=== PATIENT | male | born 1980 | race Caucasian/White ===

== ENCOUNTER 2018-10-19 14:04 | Inpatient (IN) | payer OTHER ==
[2018-10-19 18:38] VITALS: BMI 39.9
--- NOTE | 2018-10-19 20:42 | HP ---
COWS - Scale Resting Pulse: 2= UT 101-120 Sweatin=Flushed/Facial Moisture Restless Observation: 5= Unable to Sit Still Pupil Size: 1= Pupils >than Normal Bone or Joint Aches: 4=Acute Joint/Muscle Pain Runny Nose/ Eye Tearin= Runny Nose/Eyes GI Upset > 30mins: 3= Vomiting/Diarrhea Tremor Observation: 0= None Yawning Observation: 0= None Anxiety or Irritability: 2=Irritable/Anxious Goose Flesh Skin: 0=Smooth Skin COWS Score: 21 CIWA Score Nausea/Vomitin Muscle Tremors: None Anxiety: 4-Mod. Anxious/Guarded Agitation: 4-Moderately Restless Paroxysmal Sweats: 3 Orientation: 0-Oriented Tacttile Disturbances: 0-None Auditory Disturbances: 2-Mild Harshness/Frighten Visual Disturbances: 2-Mild Sensitivity Headache: 0-None Present CIWA-Ar Total Score: 17 - Admission Criteria [facility] Guidelines: Admission for Medically Managed Detox: Requires at least one of the followin. CIWA greater than 12 2. Seizures within the past 24 hours 3. Delirium tremens within the past 24 hours 4. Hallucinations within the past 24 hours 5. Acute intervention needed for co occurring medical disorder 6. Acute intervention needed for co occurring psychiatric disorder 7. Severe withdrawal that cannot be handled at a lower level of care (continued vomiting, continued diarrhea, abnormal vital signs) requiring intravenous medication and/or fluids 8. Patient presents the following: CIWA greater than 12, Acute intervention needed for co-occurring med or psych disorder Admission Criteria Met: Admission criteria met Admission ROS [facility] Chief Complaint: C/O WORSENING WITHDRAWAL SX'S SEEKING DETOX FROM HEROIN AND BENZO Allergies/Adverse Reactions: Allergies Allergy/AdvReac Type Severity Reaction Status Date / Time No Known Drug Allergies Allergy Verified 10/19/18 19:45 seafood Allergy Mild Rash Uncoded 10/19/18 19:45 History of Present Illness: 38 Y.O. MALE WITH HX/O OPIOID AND BENZO DEPENDENCE HERE FOR DETOX. HE IS SELF REFERRED.CLIENT IS KNOWN TO THIS PROGRAM. LAST HERE 2013. DENIES ANY TXMENT SINCE. PRESENT TODAY WITH C/O WORSENING WITHDRAWAL SX'S. CIWA 17/ COS 21. REPORTS LONGEST CLEAN TIME 3MONTHS. DENIES RECENT CLEAN TIME. DENIES HX/O SEIZURE, AVH, SI/HI. LIVES WITH FAMILY, UNEMPLOYED, OPEN LEGAL CASE BUT STATES HE IS NOT COURT MANDATED. PMHX- CHRONIC BACK PAIN, ASTHMA PSYCH- DEPRESSION, ANXIETY, MEDS- PROZAC, NORVASC, XANAX Exam Limitations: No Limitations - Ebola screening Have you traveled outside of the country in the last 21 days: No Have you had contact with anyone from an Ebola affected area: No Have you been sick,other than usual withdrawal symptoms: No Do you have a fever: No - Review of Systems Constitutional: Chills, Loss of Appetite, Malaise, Night Sweats, Changes in sleep EENT: reports: Other (RUNNY NOSE) Respiratory: reports: Shortness of Breath (INTERMITTENT) Cardiac: reports: No Symptoms Reported GI: reports: Diarrhea, Nausea, Poor Appetite, Poor Fluid Intake, Vomiting, Abdominal cramping : reports: Other (DIFFICULTY INITIATING STREAM) Musculoskeletal: reports: Back Pain (CHRONIC) Integumentary: reports: Flushing, Sweating Neuro: reports: No Symptoms reported Endocrine: reports: No Symptoms Reported Hematology: reports: No Symptoms Reported Psychiatric: reports: Anxious, Depressed Other Systems: Reviewed and Negative Patient History - Patient Medical History Hx Anemia: No Hx Asthma: Yes Hx Chronic Obstructive Pulmonary Disease (COPD): No Hx Cancer: No Hx Cardiac Disorders: No Hx Congestive Heart Failure: No Hx Hypertension: Yes Hx Hypercholesterolemia: No Hx Pacemaker: No HX Cerebrovascular Accident: No Hx Seizures: Yes (alcohol related./ LAST EPISODE 2013) Hx Dementia: No Hx Diabetes: No Hx Gastrointestinal Disorders: No Hx Genitourinary Disorders: No Hx Sexually Transmitted Disorders: No Hx Renal Disease (ESRD): No Hx Thyroid Disease: No Hx Human Immunodeficiency Virus (HIV): No Hx Hepatitis C: No Hx Depression: Yes Hx Suicide Attempt: No Hx Bipolar Disorder: Yes Hx Schizophrenia: No - Patient Surgical History Past Surgical History: Yes Hx Neurologic Surgery: No Hx Cataract Extraction: No Hx Cardiac Surgery: No Hx Lung Surgery: No Hx Breast Surgery: No Hx Breast Biopsy: No Hx Abdominal Surgery: No Hx Appendectomy: No Hx Cholecystectomy: No Hx Genitourinary Surgery: No Hx Section: No Hx Orthopedic Surgery: Yes (left gangliaon cyst removed 1993) Other Surgical History: ganglion cyst, left wrist Anesthesia Reaction: No - PPD History Previous Implant?: Yes Documented Results: Negative w/proof Implanted On Prior [facility] Admission?: Yes Date: 04/29/14 Results: 0 mm PPD to be Administered?: Yes - Smoking Cessation Smoking history: Current some day smoker Have you smoked in the past 12 months: Yes Aproximately how many cigarettes per day: 5 Cigars Per Day: 0 Hx Chewing Tobacco Use: No Initiated information on smoking cessation: Yes 'Breaking Loose' booklet given: 10/19/18 - Substance & Tx. History Hx Alcohol Use: No Hx Substance Use: Yes Substance Use Type: Heroin, Tranquilizers (XANAX) Hx Substance Use Treatment: Yes ([facility]) - Substances Abused Heroin Route: Inhalation Frequency: Daily Amount used: 10 BAGS Age of first use: 37 Date of Last Use: 10/19/18 Alprazolam (Xanax) Route: Oral Frequency: Daily Amount used: 2mg Age of first use: 36 Date of Last Use: 10/19/18 Family Disease History - Family Disease History Family Disease History: Diabetes: Grandparent, Heart Disease: Grandparent, Other : Father (alcoholic, ) Admission Physical Exam [facility] - Vital Signs Vital Signs: Vital Signs - 24 hr 10/19/18 18:32 Temperature 98.6 F Pulse Rate 120 H Respiratory 20 Rate Blood Pressure 128/86 - Physical General Appearance: Yes: Appropriately Dressed, Tremorous (FELT), Sweating, Anxious HEENTM: Yes: EOMI, Normocephalic, Normal Voice, JENNY, Pharynx Normal, Nasal Congestion Respiratory: Yes: Chest Non-Tender, Lungs Clear, Normal Breath Sounds, No Respiratory Distress, No Accessory Muscle Use Neck: Yes: No masses,lesions,Nodules, Supple, Trachea in good position Breast: Yes: Breast Exam Deferred Cardiology: Yes: Regular Rhythm, Regular Rate, S1, S2 Abdominal: Yes: Normal Bowel Sounds, Non Tender, Soft, Protuberent Genitourinary: Yes: Other (NO C/O) Back: Yes: Surgical Scar Musculoskeletal: Yes: full range of Motion, Gait Steady Extremities: Yes: Normal Range of Motion, Non-Tender, Tremors (FELT) Neurological: Yes: Fully Oriented, Alert, Motor Strength 5/5, Depressed Affect Integumentary: Yes: Cold (COOL), Clammy, Moist, Other (GENERALIZED HYPERPIGMENTATED LESIONS NOTED TO THIGHS AND ARMS FROM CLIENT PICKING HIS SKIN. REPORTS INTERMITTENT USE OF COCIAINE WELL) Lymphatic: Yes: Within Normal Limits - Diagnostic (1) Opioid dependence with withdrawal Current Visit: Yes Status: Acute (2) Sedative, hypnotic or anxiolytic abuse, uncomplicated Current Visit: Yes Status: Acute (3) Asthma Current Visit: Yes Status: Chronic Qualifiers: Asthma severity: mild Asthma persistence: intermittent Asthma complication type: uncomplicated Qualified Code(s): J45.20 - Mild intermittent asthma, uncomplicated (4) Alcohol related seizure Current Visit: Yes Status: Suspected Comment: HISTORY OF (5) Formication Current Visit: Yes Status: Acute (6) Anxiety Current Visit: Yes Status: Chronic (7) Bipolar disorder Current Visit: Yes Status: Chronic (8) Chronic low back pain Current Visit: Yes Status: Chronic (9) Hypertension Current Visit: Yes Status: Chronic Qualifiers: Hypertension type: essential hypertension Qualified Code(s): I10 - Essential (primary) hypertension Cleared for Admission [facility] - Detox or Rehab [facility] Level of Care: Medically Managed Detox Regimen/Protocol: Methadone/Valium Claeared for Rehab Admission: No [facility] Breath Alcohol Content Breath Alcohol Content: 0 Urine Drug Screen - Results Drug Screen Negative: No Urine Drug Screen Results: OPI-Opiates, BZO-Benzodiazepines, OXY-Oxycodone, FEN- Fentanyl
[2018-10-19] MEDS ORDERED: MAGNESIUM CITRATE 300 ML BOTTLE PO PRN (20:54)
[2018-10-19] MEDS ORDERED: METHADONE HCL 10 MG TABLET (FOR DETOX USE ONLY) PO ONE ×2 (20:54→23:00)
[2018-10-19] MEDS ORDERED: diazePAM 5 MG TABLET PO ONE (20:54)
[2018-10-19] MEDS ORDERED: IBUPROFEN 400 MG TABLET (FP) PO PRN (20:54)
[2018-10-19] MEDS ORDERED: NICOTINE POLACRILEX 2 MG GUM BC PRN (20:54)
[2018-10-19] MEDS ORDERED: MAGNESIUM HYDROX 2400MG/30ML ORAL SUSPENSION 30 ML CUP PO PRN (20:54)
[2018-10-19] MEDS ORDERED: guaiFENesin/D-METHORPHAN HB 10 ML UNIT-DOSE CUPS PO PRN (20:54)
[2018-10-19] MEDS ORDERED: P-EPHED 60MG/TRIPROLIDI 2.5MG TABLET PO PRN (20:54)
[2018-10-19] MEDS ORDERED: LOPERAMIDE HCL 2 MG CAPSULE PO PRN (20:54)
[2018-10-19] MEDS ORDERED: MAG HYDROX/AL HYDROX/SIMETH 30 ML UNIT-DOSE CUP PO PRN (20:54)
[2018-10-19] MEDS ORDERED: MENTHOL/PHENOL 1 EACH UD MM PRN (20:54)
[2018-10-19] MEDS: THIAMINE HCL 100 MG TABLET (FP) PO SCH (23:00)
[2018-10-19] MEDS: diazePAM 5 MG TABLET PO SCH (23:01)
[2018-10-19] MEDS: ACETAMINOPHEN 325 MG TABLET (FP) PO PRN (23:02)
[2018-10-19] MEDS: ALBUTEROL SO4 8 GM HFA INHALER IH PRN (23:16)
[2018-10-19] MEDS: MELATONIN 5 MG TABLETS PO PRN (23:35)
[2018-10-20] MEDS: diazePAM 5 MG TABLET PO PRN ×2 (01:56→20:09)
[2018-10-20] MEDS: diazePAM 5 MG TABLET PO SCH ×3 (05:59→22:04)
[2018-10-20] MEDS: ALBUTEROL SO4 8 GM HFA INHALER IH PRN ×2 (08:29→22:20)
[2018-10-20] MEDS ORDERED: METHADONE HCL 10 MG TABLET (FOR DETOX USE ONLY) PO SCH (10:00)
--- NOTE | 2018-10-20 10:06 | EKG ---
Test Reason : Blood Pressure : / mmHG Vent. Rate : 108 BPM Atrial Rate : 108 BPM P-R Int : 156 ms QRS Dur : 104 ms QT Int : 338 ms P-R-T Axes : 058 213 070 degrees QTc Int : 452 ms SINUS TACHYCARDIA INDETERMINATE AXIS RIGHT VENTRICULAR HYPERTROPHY ABNORMAL ECG NO PREVIOUS ECGS AVAILABLE Confirmed by Ravindra Hernandez MD ([id number]) on 10/20/2018 10:06:11 AM Referred By: Confirmed By:Ravindra Hernandez MD
[2018-10-20] MEDS: NICOTINE 14 MG/24 HOURS TOPICAL PATCH TD SCH (10:14)
[2018-10-20] MEDS: PRENATAL VITAMINS W/ FOLIC ACID TABLET (FP) PO SCH (10:14)
--- NOTE | 2018-10-20 10:18 | CONSULT ---
[facility] Psychiatric Consult - Data Date of interview: 10/20/18 Admission source: [facility] Identifying data: Patient is a 38 year old single male, father of two, unemployed, homeless, and residing with family. This is one of multiple admissions for patient. Patient admitted to for for opiate dependence. Substance Abuse History: Smoking Cessation. Smoking history: Current some day smoker. Have you smoked in the past 12 months: Yes. Aproximately how many cigarettes per day: 5. Cigars Per Day: 0. Hx Chewing Tobacco Use: No. Initiated information on smoking cessation: Yes. 'Breaking Loose' booklet given : 10/19/18. - Substance & Tx. History. Hx Alcohol Use: No. Hx Substance Use: Yes. Substance Use Type: Heroin, Tranquilizers (XANAX). Hx Substance Use Treatment: Yes ([facility]). - Substances Abused. Heroin. Route: Inhalation. Frequency: Daily. Amount used: 10 BAGS. Age of first use: 37. Date of Last Use: 10/19/18. Alprazolam (Xanax). Route: Oral. Frequency: Daily. Amount used: 2mg. Age of first use: 36. Date of Last Use: 10/19/18 Medical History: Asthma, seizures r/t alcohol withdrawal 2013 Psychiatric History: Patient denies h/o psychiatric hospitalization. Mr. Kumar is currently provided outpatient psychatric care in [place], [place] by Dr. frye. Patient is currently prescribed prozac 60mg. Mr. Kumar denies h/o suicide attempt. At present, patient is c/o difficulty sleeping. Physical/Sexual Abuse/Trauma History: denies. Mental Status Exam - Mental Status Exam Alert and Oriented to: Time, Place, Person Cognitive Function: Good Patient Appearance: Well Groomed Mood: Euthymic Affect: Appropriate Patient Behavior: Cooperative Speech Pattern: Clear Voice Loudness: Normal Thought Process: Intact, Goal Oriented Thought Disorder: Not Present Hallucinations: Denies Suicidal Ideation: Denies Homicidal Ideation: Denies Insight/Judgement: Poor Sleep: Poorly Appetite: Fair Muscle strength/Tone: Normal Gait/Station: Normal Psychiatric Findings - Problem List ([place] 1, 2,3) (1) Opioid dependence with withdrawal Current Visit: Yes Status: Acute (2) Sedative, hypnotic or anxiolytic abuse, uncomplicated Current Visit: Yes Status: Acute (3) Substance-induced anxiety disorder Current Visit: Yes Status: Acute (4) Substance-induced sleep disorder Current Visit: Yes Status: Acute - Initial Treatment Plan Initial Treatment Plan: Psychoeducation provided. Detoxification in progress. Will order Prozac 60mg + Seroquel 50mg HS. Benefits and side effects discussed. Verbal consent given.
[2018-10-20 10:26] LABS: HEMATOCRIT 44.5 % (35.4-49); HEMOGLOBIN 14.1 GM/dL (11.7-16.9); MCH 26.9 pg (25.7-33.7); MCHC 31.6 g/dl (32.0-35.9); MEAN PLT VOLUME 9.2 fl (7.5-11.1); PLATELET COUNT 298 K/MM3 (134-434); RBC 5.23 M/mm3 (4.00-5.60); RDW 15.1 % (11.9-15.9); WHITE BLOOD COUNT 11.5 K/mm3 (4.0-10.0)
[2018-10-20] MEDS: amLODIPine BESYLATE 2.5 MG TABLET (FP) PO SCH (10:38)
[2018-10-20] MEDS: TRIMETHOBENZAMIDE HCL 200MG/2ML INJ IM PRN (10:45)
[2018-10-20 10:54] LABS: ALBUMIN 3.9 g/dl (3.4-5.0); ALK PHOS 79 U/L (45-117); ANION GAP 11 MMOL/L (8-16); BILIRUBIN,TOTAL 0.5 mg/dL (0.2-1); BLOOD UREA NITROGEN 13 mg/dL (7-18); CALCIUM 9.8 mg/dL (8.5-10.1); CHLORIDE 103 mmol/L (98-107); CO2 26 mmol/L (21-32); CREATININE 0.8 mg/dL (0.55-1.3); GLUCOSE,RANDOM 73 mg/dL (74-106); POTASSIUM 4.4 mmol/L (3.5-5.1); SGOT/AST 11 U/L (15-37); SGPT/ALT 19 U/L (13-61); SODIUM 139 mmol/L (136-145); TOT PROT 7.6 g/dl (6.4-8.2)
[2018-10-20] MEDS ORDERED: CYCLOBENZAPRINE HCL 10 MG TABLET (FP) PO PRN (11:30)
[2018-10-20] MEDS: FLUoxetine HCL 20 MG CAPSULE (FP) PO SCH (11:33)
--- NOTE | 2018-10-20 16:05 | PN ---
S CIWA - CIWA Score Nausea/Vomitin Muscle Tremors: 3 Anxiety: 5 Agitation: 4-Moderately Restless Paroxysmal Sweats: 3 Orientation: 0-Oriented Tacttile Disturbances: 0-None Auditory Disturbances: 0-None Visual Disturbances: 0-None Headache: 1-Very Mild CIWA-Ar Total Score: 19 BHS COWS - Scale Resting Pulse: 2= ID 101-120 Sweatin= Chills/Flushing Restless Observation: 1= Difficult to Sit Still Pupil Size: 0= Normal to Room Light Bone or Joint Aches: 2= Severe Diffuse Aches Runny Nose/ Eye Tearin= Nasal Congestion GI Upset > 30mins: 2= Nausea/Diarrhea Tremor Observation of Outstretched Hands: 2= Slight Tremor Visible Yawning Observation: 1= 1-2x During Session Anxiety or Irritability: 4=Extreme Anxiety Goose Flesh Skin: 0=Smooth Skin COWS Score: 16 BHS Progress Note (SOAP) Subjective: Nausea, Body Aches, H/A, Sweating, Tremors. Objective: PATIENT A & O X 3, OBSERVED AMBULATING ON UNIT. IN NO ACUTE DISTRESS. 10/20/18 16:04 Vital Signs Temperature 98.2 F 10/20/18 15:33 Pulse Rate 107 H 10/20/18 15:33 Respiratory Rate 18 10/20/18 15:33 Blood Pressure 128/86 10/20/18 15:33 O2 Sat by Pulse Oximetry (%) Laboratory Tests 10/20/18 10/20/18 10/20/18 07:00 07:00 07:00 WBC 11.5 H RBC 5.23 Hgb 14.1 Hct 44.5 MCV 85.0 MCH 26.9 MCHC 31.6 L RDW 15.1 Plt Count 298 D MPV 9.2 Sodium 139 Potassium 4.4 Chloride 103 Carbon Dioxide 26 Anion Gap 11 BUN 13 Creatinine 0.8 Creat Clearance w eGFR > 60 Random Glucose 73 L Calcium 9.8 Total Bilirubin 0.5 AST 11 L ALT 19 Alkaline Phosphatase 79 Total Protein 7.6 Albumin 3.9 RPR Titer HIV 1&2 Antibody Screen Negative HIV P24 Antigen Negative 10/20/18 07:00 WBC RBC Hgb Hct MCV MCH MCHC RDW Plt Count MPV Sodium Potassium Chloride Carbon Dioxide Anion Gap BUN Creatinine Creat Clearance w eGFR Random Glucose Calcium Total Bilirubin AST ALT Alkaline Phosphatase Total Protein Albumin RPR Titer Nonreactive HIV 1&2 Antibody Screen HIV P24 Antigen LABS NOTED. Assessment: 10/20/18 16:04 WITHDRAWAL SYMPTOMS. LEUKOCYTOSIS. 10/20/18 16:07 Plan: CONTINUE DETOX. REPEAT CBC TOMORROW FOR ELEVATED ADMISSION WBC LEVEL.
[2018-10-20] MEDS: QUEtiapine FUMARATE 50 MG TABLET PO SCH (22:04)
[2018-10-20] MEDS: THIAMINE HCL 100 MG TABLET (FP) PO SCH (22:04)
[2018-10-21] MEDS: TRIMETHOBENZAMIDE HCL 200MG/2ML INJ IM PRN (05:42)
[2018-10-21] MEDS ORDERED: METHADONE HCL 5 MG TABLET (FOR DETOX USE ONLY) PO SCH (10:00)
[2018-10-21] MEDS ORDERED: TRIMETHOBENZAMIDE HCL 300 MG CAPSULE PO PRN (10:07)
[2018-10-21] MEDS ORDERED: METHADONE DETOX 10 MG/1 ML [20ML VIAL] IM ONE (10:20)
[2018-10-21] MEDS ORDERED: BACLOFEN 10 MG TABLET (FP) PO ONE (10:25)
[2018-10-21 10:29] LABS: BASO % 0.8 % (0-2.0); EOS % 6.3 % (0-4.5); HEMATOCRIT 45.6 % (35.4-49); HEMOGLOBIN 14.6 GM/dL (11.7-16.9); LYMPH % 35.8 % (8-40); MCH 27.1 pg (25.7-33.7); MEAN CELL VOLUME 84.7 fl (80-96); MEAN PLT VOLUME 9.4 fl (7.5-11.1); MONO % 7.4 % (3.8-10.2); NEUT % 49.7 % (42.8-82.8); PLATELET COUNT 290 K/MM3 (134-434); RBC 5.38 M/mm3 (4.00-5.60); RDW 15.7 % (11.9-15.9)
[2018-10-21] MEDS: NICOTINE 14 MG/24 HOURS TOPICAL PATCH TD SCH (10:57)
[2018-10-21] MEDS: FLUoxetine HCL 20 MG CAPSULE (FP) PO SCH (10:58)
[2018-10-21] MEDS: PRENATAL VITAMINS W/ FOLIC ACID TABLET (FP) PO SCH (10:58)
[2018-10-21] MEDS: diazePAM 5 MG TABLET PO SCH ×2 (10:58→22:04)
--- NOTE | 2018-10-21 12:06 | PN ---
S CIWA - CIWA Score Nausea/Vomitin-No Nausea/No Vomiting Muscle Tremors: 4-Moderate,w/Arms Extend Anxiety: 3 Agitation: 3 Paroxysmal Sweats: 3 Orientation: 0-Oriented Tacttile Disturbances: 0-None Auditory Disturbances: 0-None Visual Disturbances: 0-None Headache: 0-None Present CIWA-Ar Total Score: 13 BHS COWS - Scale Resting Pulse: 0= [place] 80 or Below Sweatin=Flushed/Facial Moisture Restless Observation: 1= Difficult to Sit Still Pupil Size: 0= Normal to Room Light Bone or Joint Aches: 2= Severe Diffuse Aches Runny Nose/ Eye Tearin= None GI Upset > 30mins: 1= Stomach Cramp Tremor Observation of Outstretched Hands: 2= Slight Tremor Visible Yawning Observation: 2= >3x During Session Anxiety or Irritability: 2=Irritable/Anxious Goose Flesh Skin: 0=Smooth Skin COWS Score: 12 S Progress Note (SOAP) Subjective: agitation anxiety sweats shakes interrupted sleep nausea/vomiting chills Objective: 10/21/18 12:02 Vital Signs Temperature 98.2 F 10/21/18 09:33 Pulse Rate 77 10/21/18 09:33 Respiratory Rate 16 10/21/18 09:33 Blood Pressure 141/67 10/21/18 09:33 O2 Sat by Pulse Oximetry (%) Laboratory Tests 10/20/18 10/20/18 10/20/18 07:00 07:00 07:00 WBC 11.5 H RBC 5.23 Hgb 14.1 Hct 44.5 MCV 85.0 MCH 26.9 MCHC 31.6 L RDW 15.1 Plt Count 298 D MPV 9.2 Absolute Neuts (auto) Neutrophils % Lymphocytes % Monocytes % Eosinophils % Basophils % Nucleated RBC % Sodium 139 Potassium 4.4 Chloride 103 Carbon Dioxide 26 Anion Gap 11 BUN 13 Creatinine 0.8 Creat Clearance w eGFR > 60 Random Glucose 73 L Calcium 9.8 Total Bilirubin 0.5 AST 11 L ALT 19 Alkaline Phosphatase 79 Total Protein 7.6 Albumin 3.9 RPR Titer HIV 1&2 Antibody Screen Negative HIV P24 Antigen Negative 10/20/18 10/21/18 07:00 07:00 WBC 9.0 RBC 5.38 Hgb 14.6 Hct 45.6 MCV 84.7 MCH 27.1 MCHC 32.0 RDW 15.7 Plt Count 290 MPV 9.4 Absolute Neuts (auto) 4.5 Neutrophils % 49.7 Lymphocytes % 35.8 Monocytes % 7.4 D Eosinophils % 6.3 H D Basophils % 0.8 Nucleated RBC % 0 Sodium Potassium Chloride Carbon Dioxide Anion Gap BUN Creatinine Creat Clearance w eGFR Random Glucose Calcium Total Bilirubin AST ALT Alkaline Phosphatase Total Protein Albumin RPR Titer Nonreactive HIV 1&2 Antibody Screen HIV P24 Antigen aaox3 ambulating no acute distress Assessment: 10/21/18 12:06 withdrawal sx Plan: continue detox increase fluids methadone 7.5mg IM x one for today only tigan IM prn tigan po prn clonidine 0.1mg bid with parameters
[2018-10-21] MEDS: BACLOFEN 10 MG TABLET (FP) PO SCH ×2 (13:58→22:04)
[2018-10-21] MEDS: diazePAM 5 MG TABLET PO PRN ×2 (13:58→18:58)
[2018-10-21] MEDS: amLODIPine BESYLATE 2.5 MG TABLET (FP) PO SCH (14:00)
[2018-10-21] MEDS: cloNIDine HCL 0.1 MG TABLET PO SCH ×2 (14:57→22:04)
[2018-10-21] MEDS: QUEtiapine FUMARATE 50 MG TABLET PO SCH (22:04)
[2018-10-21] MEDS: THIAMINE HCL 100 MG TABLET (FP) PO SCH (22:04)
[2018-10-21] MEDS: ALBUTEROL SO4 8 GM HFA INHALER IH PRN (22:06)
[2018-10-22] MEDS: BACLOFEN 10 MG TABLET (FP) PO SCH ×3 (06:28→22:29)
[2018-10-22] MEDS: diazePAM 5 MG TABLET PO PRN ×3 (06:30→17:53)
[2018-10-22] MEDS ORDERED: METHADONE HCL 5 MG TABLET (FOR DETOX USE ONLY) PO SCH (10:00)
[2018-10-22] MEDS: cloNIDine HCL 0.1 MG TABLET PO SCH ×2 (10:21→22:26)
[2018-10-22] MEDS: FLUoxetine HCL 20 MG CAPSULE (FP) PO SCH (10:21)
[2018-10-22] MEDS: PRENATAL VITAMINS W/ FOLIC ACID TABLET (FP) PO SCH (10:21)
[2018-10-22] MEDS: diazePAM 5 MG TABLET PO SCH ×2 (10:21→22:26)
[2018-10-22] MEDS: amLODIPine BESYLATE 2.5 MG TABLET (FP) PO SCH (10:22)
[2018-10-22] MEDS: NICOTINE 14 MG/24 HOURS TOPICAL PATCH TD SCH (10:22)
[2018-10-22] MEDS: ALBUTEROL SO4 8 GM HFA INHALER IH PRN ×2 (10:22→22:32)
--- NOTE | 2018-10-22 10:51 | PN ---
BHS Progress Note (SOAP) Subjective: feeling a little better nausea sweats Objective: 10/22/18 10:50 Vital Signs Temperature 97.9 F 10/22/18 09:39 Pulse Rate 103 H 10/22/18 09:39 Respiratory Rate 18 10/22/18 09:39 Blood Pressure 124/72 10/22/18 09:39 O2 Sat by Pulse Oximetry (%) aaox3 ambulating no acute distress Assessment: 10/22/18 10:51 withdrawal sx Plan: continue detox increase fluids tigan po prn
[2018-10-22] MEDS: THIAMINE HCL 100 MG TABLET (FP) PO SCH (22:26)
[2018-10-22] MEDS: QUEtiapine FUMARATE 50 MG TABLET PO SCH (22:26)
[2018-10-22] MEDS: MELATONIN 5 MG TABLETS PO PRN (22:27)
[2018-10-23] MEDS: BACLOFEN 10 MG TABLET (FP) PO SCH ×2 (05:48→13:08)
[2018-10-23] MEDS: ALBUTEROL SO4 8 GM HFA INHALER IH PRN ×2 (09:17→19:45)
[2018-10-23] MEDS ORDERED: diazePAM 5 MG TABLET PO SCH (10:00)
[2018-10-23] MEDS ORDERED: METHADONE HCL 10 MG TABLET (FOR DETOX USE ONLY) PO SCH (10:00)
[2018-10-23] MEDS: cloNIDine HCL 0.1 MG TABLET PO SCH (10:23)
[2018-10-23] MEDS: PRENATAL VITAMINS W/ FOLIC ACID TABLET (FP) PO SCH (10:23)
[2018-10-23] MEDS: NICOTINE 14 MG/24 HOURS TOPICAL PATCH TD SCH (10:24)
[2018-10-23] MEDS: FLUoxetine HCL 20 MG CAPSULE (FP) PO SCH (10:24)
[2018-10-23] MEDS: amLODIPine BESYLATE 2.5 MG TABLET (FP) PO SCH (13:07)
[2018-10-23] MEDS ORDERED: hydrOXYzine PAMOATE 50 MG CAPSULE (FP) PO PRN (14:45)
[2018-10-23] MEDS ORDERED: cloNIDine HCL 0.1 MG TABLET PO PRN (14:45)
--- NOTE | 2018-10-23 14:52 | PN ---
BHS Progress Note (SOAP) Subjective: Pt states still feels like he is in withdrawal- almost done with detox protocol O: Vital Signs - 24 hr 10/22/18 10/22/18 10/23/18 17:44 22:13 00:30 Temperature 98.6 F 97.5 F L Pulse Rate 90 98 H Respiratory 19 20 18 Rate Blood Pressure 104/51 L 120/86 10/23/18 10/23/18 10/23/18 03:30 06:52 09:31 Temperature 97.7 F 97.7 F Pulse Rate 94 H 107 H Respiratory 18 18 18 Rate Blood Pressure 105/69 119/81 10/23/18 13:45 Temperature 97.9 F Pulse Rate 105 H Respiratory 18 Rate Blood Pressure 130/95 Laboratory Tests 10/20/18 10/20/18 10/20/18 07:00 07:00 07:00 WBC 11.5 H RBC 5.23 Hgb 14.1 Hct 44.5 MCV 85.0 MCH 26.9 MCHC 31.6 L RDW 15.1 Plt Count 298 D MPV 9.2 Absolute Neuts (auto) Neutrophils % Lymphocytes % Monocytes % Eosinophils % Basophils % Nucleated RBC % Sodium 139 Potassium 4.4 Chloride 103 Carbon Dioxide 26 Anion Gap 11 BUN 13 Creatinine 0.8 Creat Clearance w eGFR > 60 Random Glucose 73 L Calcium 9.8 Total Bilirubin 0.5 AST 11 L ALT 19 Alkaline Phosphatase 79 Total Protein 7.6 Albumin 3.9 RPR Titer HIV 1&2 Antibody Screen Negative HIV P24 Antigen Negative 10/20/18 10/21/18 07:00 07:00 WBC 9.0 RBC 5.38 Hgb 14.6 Hct 45.6 MCV 84.7 MCH 27.1 MCHC 32.0 RDW 15.7 Plt Count 290 MPV 9.4 Absolute Neuts (auto) 4.5 Neutrophils % 49.7 Lymphocytes % 35.8 Monocytes % 7.4 D Eosinophils % 6.3 H D Basophils % 0.8 Nucleated RBC % 0 Sodium Potassium Chloride Carbon Dioxide Anion Gap BUN Creatinine Creat Clearance w eGFR Random Glucose Calcium Total Bilirubin AST ALT Alkaline Phosphatase Total Protein Albumin RPR Titer Nonreactive HIV 1&2 Antibody Screen HIV P24 Antigen a/p: heroin detox- continue detox protocol- prn clonidine and vistaril for withdrawal Sx pt will go to [facility] for methadone based treatment
[2018-10-24] MEDS: ALBUTEROL SO4 8 GM HFA INHALER IH PRN (02:21)
[2018-10-24] MEDS: ACETAMINOPHEN 325 MG TABLET (FP) PO PRN (02:23)
[2018-10-24] MEDS: BACLOFEN 10 MG TABLET (FP) PO SCH (05:56)
[2018-10-24] MEDS ORDERED: METHADONE HCL 5 MG TABLET (FOR DETOX USE ONLY) PO SCH (06:00)
[2018-10-24] MEDS: amLODIPine BESYLATE 2.5 MG TABLET (FP) PO SCH (09:31)
[2018-10-24] MEDS: PRENATAL VITAMINS W/ FOLIC ACID TABLET (FP) PO SCH (09:31)
[2018-10-24] MEDS: FLUoxetine HCL 20 MG CAPSULE (FP) PO SCH (09:31)
[2018-10-24 09:54] VITALS: BP 141/82; PULSE 93; TEMP 97.7
--- NOTE | 2018-10-24 14:55 | PN ---
S Progress Note Note: pt completed detox For discharge Will do Aftercare by starting methadone program @ [facility] on friday10/28/18. Will also follow up with his PMD Dr Castillo. Does not remember the clinic's name
--- NOTE | 2018-10-24 15:03 | DS ---
[facility] Detox Discharge Summary Admission Date: 10/19/18 Discharge Date: 10/24/18 - History Additional Comments: pt being discharged. Pls see progress note Vital Signs Temperature 97.7 F 10/24/18 09:52 Pulse Rate 93 H 10/24/18 09:52 Respiratory Rate 18 10/24/18 09:52 Blood Pressure 141/82 10/24/18 09:52 O2 Sat by Pulse Oximetry (%) In stable condition prescription meds sent to the pharmacy, pt knows to go pick them - Physical Exam Results Vital Signs: Vital Signs Temperature 97.7 F 10/24/18 09:52 Pulse Rate 93 H 10/24/18 09:52 Respiratory Rate 18 10/24/18 09:52 Blood Pressure 141/82 10/24/18 09:52 O2 Sat by Pulse Oximetry (%) Pertinent Admission Physical Exam Findings: withdrawal sx - Treatment Hospital Course: Detox Protocol Followed, Detoxed Safely, Responded well, Discharged Condition Good, Rehab Referral Accepted Patient has Accepted a Rehab Referral to: [facility] - Medication Discharge Medications: Ambulatory Orders Zolpidem Tartrate [Ambien -] 10 mg PO HS 09/02/14 clonazePAM [Klonopin -] 0.5 mg PO TID 09/02/14 Paroxetine HCl [Paxil -] 10 mg PO DAILY #30 tablet 09/03/14 Quetiapine Fumarate [Seroquel -] 100 mg PO HS #30 tablet 09/03/14 Amlodipine Besylate [Norvasc -] 2.5 mg PO DAILY #30 tablet 09/06/14 Fluoxetine HCl [Prozac] 60 mg PO DAILY 10/20/18 Albuterol Sulfate Inhaler - [Ventolin HFA Inhaler -] 2 puff IH Q4H PRN 30 Days # 1 inhaler 10/24/18 Baclofen [Lioresal -] 10 mg PO TID 10 Days #30 tablet 10/24/18 Naloxone HCl [Narcan] 4 mg NS PRN PRN #1 spray 10/24/18 - AMA Did Patient Leave Against Medical Advice: No
== END 2018-10-24 10:07 | disposition home or self-care (01) | DRG 773 ==
LOC: YASAS 14:04 → Y6N 21:59
PROC: HZ2ZZZZ Detoxification Services for Substance Abuse Treatment (ICD-10-PCS; principal; 2018-10-19)
DX: F11.23 Opioid dependence with withdrawal (principal); F13.230 Sedative, hypnotic or anxiolytic dependence with withdrawal, uncomplicated; F19.24 Other psychoactive substance dependence with psychoactive substance-induced mood disorder; F19.282 Other psychoactive substance dependence with psychoactive substance-induced sleep disorder; F31.9 Bipolar disorder, unspecified; F41.9 Anxiety disorder, unspecified; D72.829 Elevated white blood cell count, unspecified; J45.20 Mild intermittent asthma, uncomplicated; I10 Essential (primary) hypertension; M54.5 Low back pain; G89.29 Other chronic pain; R20.2 Paresthesia of skin; Z86.69 Personal history of other diseases of the nervous system and sense organs
CPT/HCPCS: 36415; 80053; 85025; 85027; 86593; 87389; 93005; 93010; J0475; J0735

== ENCOUNTER 2019-07-31 10:46 | Inpatient (IN) | payer OTHER ==
[2019-07-31 11:00] VITALS: BMI 37.5
[2019-07-31] MEDS ORDERED: MAG HYDROX/AL HYDROX/SIMETH 30 ML UNIT-DOSE CUP PO PRN (12:47)
[2019-07-31] MEDS ORDERED: MELATONIN 5 MG TABLETS PO PRN (12:47)
[2019-07-31] MEDS ORDERED: MAGNESIUM HYDROX 2400MG/30ML ORAL SUSPENSION 30 ML CUP PO PRN (12:47)
[2019-07-31] MEDS ORDERED: MENTHOL/PHENOL 1 EACH UD MM PRN (12:47)
[2019-07-31] MEDS ORDERED: ACETAMINOPHEN 325 MG TABLET (FP) PO PRN ×2 (12:47)
[2019-07-31] MEDS ORDERED: hydrOXYzine PAMOATE 50 MG CAPSULE (FP) PO PRN (12:47)
[2019-07-31] MEDS ORDERED: MAGNESIUM CITRATE 300 ML BOTTLE PO PRN (12:47)
--- NOTE | 2019-07-31 12:53 | HP ---
CIWA Score Nausea/Vomitin Muscle Tremors: 3 Anxiety: 2 Agitation: 2 Paroxysmal Sweats: 3 Orientation: 0-Oriented Tacttile Disturbances: 1-Very Mild Itch/Numbness Auditory Disturbances: 1-Very Mild Visual Disturbances: 1-Very Mild Sensitivity Headache: 3-Moderate CIWA-Ar Total Score: 18 - Admission Criteria OASAS Guidelines: Admission for Medically Managed Detox: Requires at least one of the followin. CIWA greater than 12 2. Seizures within the past 24 hours 3. Delirium tremens within the past 24 hours 4. Hallucinations within the past 24 hours 5. Acute intervention needed for co occurring medical disorder 6. Acute intervention needed for co occurring psychiatric disorder 7. Severe withdrawal that cannot be handled at a lower level of care (continued vomiting, continued diarrhea, abnormal vital signs) requiring intravenous medication and/or fluids 8. Patient presents the following: CIWA greater than 12 Admission Criteria Met: Admission criteria met Admitting History and Physical - Admission History Source: Patient Limitations to Obtaining History: No Limitations - Smoking History Smoking history: Current some day smoker Have you smoked in the past 12 months: Yes Aproximately how many cigarettes per day: 5 - Alcohol/Substance Use Hx Alcohol Use: No Admission ROS S - HPI Chief Complaint: I need detox from alcohol Allergies/Adverse Reactions: Allergies Allergy/AdvReac Type Severity Reaction Status Date / Time No Known Drug Allergies Allergy Verified 07/31/19 10:51 seafood Allergy Mild Rash Uncoded 07/31/19 10:51 History of Present Illness: 38 year old with alcohol dependence presents for detox. He reports alcohol induced seizure in the past, denies blackouts. He is requesting rehab following detox completion. Exam Limitations: No Limitations - Ebola screening Have you traveled outside of the country in the last 21 days: No Have you had contact with anyone from an Ebola affected area: No Have you been sick,other than usual withdrawal symptoms: No Do you have a fever: No - Review of Systems Constitutional: Chills, Night Sweats, Changes in sleep EENT: reports: Blurred Vision Respiratory: reports: Cough (on and off r/t asthma) Cardiac: reports: Palpitations GI: reports: Nausea, Poor Fluid Intake, Abdominal cramping : reports: No Symptoms Reported Musculoskeletal: reports: Back Pain, Muscle Pain, Muscle Weakness Integumentary: reports: Lesions, Rash Neuro: reports: Headache, Tremors Endocrine: reports: No Symptoms Reported Hematology: reports: No Symptoms Reported Psychiatric: reports: Anxious, Depressed Other Systems: Reviewed and Negative Patient History - Patient Medical History Hx Anemia: No Hx Asthma: Yes Hx Chronic Obstructive Pulmonary Disease (COPD): No Hx Cancer: No Hx Cardiac Disorders: No Hx Congestive Heart Failure: No Hx Hypertension: Yes Hx Hypercholesterolemia: No Hx Pacemaker: No HX Cerebrovascular Accident: No Hx Seizures: Yes (alcohol related) Hx Dementia: No Hx Diabetes: No Hx Gastrointestinal Disorders: No Hx Liver Disease: No Hx Genitourinary Disorders: No Hx Sexually Transmitted Disorders: No Hx Renal Disease (ESRD): No Hx Thyroid Disease: No Hx Human Immunodeficiency Virus (HIV): No Hx Hepatitis C: No Hx Depression: Yes Hx Suicide Attempt: No Hx Bipolar Disorder: Yes Hx Schizophrenia: No - Patient Surgical History Past Surgical History: Yes Hx Neurologic Surgery: Yes (due to fusion of L2 L3) Hx Cataract Extraction: No Hx Cardiac Surgery: No Hx Lung Surgery: No Hx Breast Surgery: No Hx Breast Biopsy: No Hx Abdominal Surgery: No Hx Appendectomy: No Hx Cholecystectomy: No Hx Genitourinary Surgery: No Hx Section: No Hx Orthopedic Surgery: Yes (left gangliaon cyst removed 1993) Anesthesia Reaction: No - PPD History Previous Implant?: Yes Documented Results: Negative w/proof Implanted On Prior [facility] Admission?: Yes Date: 10/21/18 Results: 0 mm PPD to be Administered?: No - Smoking Cessation Smoking history: Former smoker Have you smoked in the past 12 months: No Cigars Per Day: 1 Hx Chewing Tobacco Use: No Initiated information on smoking cessation: Yes 'Breaking Loose' booklet given: 07/31/19 - Substances abused Alcohol Substance route: Oral Frequency: Daily Amount used: 12 pk beer Age of first use: 24 Date of last use: 07/30/19 Admission Physical Exam BHS - Vital Signs Vital Signs: Vital Signs - 24 hr 07/31/19 10:55 Temperature 98.6 F Pulse Rate 117 H Respiratory 20 Rate Blood Pressure 154/101 H - Physical General Appearance: Yes: No Apparent Distress HEENTM: Yes: EOMI, Hearing grossly Normal, Normocephalic, Normal Voice, JENNY, Pharynx Normal Respiratory: Yes: Chest Non-Tender, Lungs Clear, Normal Breath Sounds, No Respiratory Distress, No Accessory Muscle Use Neck: Yes: No masses,lesions,Nodules, Supple Breast: Yes: Breast Exam Deferred Cardiology: Yes: Regular Rhythm, Regular Rate, Tachycardia Abdominal: Yes: Normal Bowel Sounds, Non Tender, Soft Genitourinary: Yes: Within Normal Limits Back: Yes: Normal Inspection Musculoskeletal: Yes: full range of Motion, Back pain, Other (needs cane ambulation due to backpain) Extremities: Yes: Tremors 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 NML intact, Fully Oriented, Alert, Normal Mood/ Affect, Normal Response Integumentary: Yes: Dry, Rash, Other Lymphatic: Yes: Within Normal Limits - Diagnostic (1) Alcohol dependence, uncomplicated Current Visit: Yes Status: Acute (2) Anxiety Current Visit: No Status: Acute (3) Asthma Current Visit: No Status: Chronic Qualifiers: Asthma severity: mild Asthma persistence: intermittent Asthma complication type: uncomplicated Qualified Code(s): J45.20 - Mild intermittent asthma, uncomplicated (4) Bipolar disorder Current Visit: No Status: Chronic Qualifiers: Active/Remission status: remission status unspecified Qualified Code(s): F31.9 - Bipolar disorder, unspecified (5) Chronic low back pain Current Visit: No Status: Chronic Qualifiers: Back pain laterality: midline Sciatica presence: unspecified whether sciatica present Qualified Code(s): M54.5 - Low back pain; G89.29 - Other chronic pain (6) Hypertension Current Visit: No Status: Chronic Qualifiers: Hypertension type: essential hypertension Qualified Code(s): I10 - Essential (primary) hypertension Cleared for Admission S - Detox or Rehab [facility] Level of Care: Medically Managed Detox Regimen/Protocol: Librium Claeared for Rehab Admission: No Breathalyzer - Breathalyzer Breathalyzer: 0 Urine Drug Screen - Test Device Lot number: [id number] Expiration date: 03/12/21 - Control Is test valid?: Yes - Results Drug screen NEGATIVE: No Urine drug screen results: [facility] Inpatient Rehab Admission - Rehab Decision to Admit Inpatient rehab admission?: No
[2019-07-31] MEDS: amLODIPine BESYLATE 10 MG TABLET (FP) PO SCH (14:23)
[2019-07-31] MEDS: chlordiazePOXIDE HCL 25 MG CAPSULE PO SCH ×2 (14:23→22:25)
[2019-07-31] MEDS: ONDANSETRON *ODT* 4 MG TABLET SL PRN (14:24)
[2019-07-31] MEDS ORDERED: METOPROLOL TARTRATE 25 MG TABLET (FP) PO ONE (14:35)
[2019-07-31] MEDS: ALBUTEROL SO4 8 GM HFA INHALER IH PRN (14:51)
[2019-07-31] MEDS ORDERED: ALBUTEROL SO4 8 GM HFA INHALER IH ONE (14:51)
[2019-07-31] MEDS: chlordiazePOXIDE HCL 10 MG CAPSULE PO PRN (17:45)
[2019-07-31] MEDS: METHOCARBAMOL 500 MG TABLET PO PRN (17:47)
[2019-07-31] MEDS: IBUPROFEN 400 MG TABLET (FP) PO PRN (17:48)
--- NOTE | 2019-07-31 20:13 | EKG ---
Test Reason : Blood Pressure : / mmHG Vent. Rate : 111 BPM Atrial Rate : 111 BPM P-R Int : 156 ms QRS Dur : 102 ms QT Int : 322 ms P-R-T Axes : 061 122 059 degrees QTc Int : 437 ms SINUS TACHYCARDIA LEFT POSTERIOR FASCICULAR BLOCK ABNORMAL ECG WHEN COMPARED WITH ECG OF 19-OCT-2018 22:17, NO SIGNIFICANT CHANGE WAS FOUND Confirmed by MD ASHWINI, ADAN ([id number]) on 07/31/2019 8:13:14 PM Referred By: DEL DUNCAN Confirmed By:ADAN MARADIAGA MD
[2019-07-31] MEDS: THIAMINE HCL 100 MG TABLET (FP) PO SCH (22:25)
[2019-08-01] MEDS: chlordiazePOXIDE HCL 25 MG CAPSULE PO SCH ×3 (05:20→22:22)
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
[2019-08-01] MEDS ORDERED: COLLOIDAL OATMEAL 1 EACH PACKET TP SCH (10:00)
[2019-08-01] MEDS: PRENATAL VITAMINS W/ FOLIC ACID TABLET (FP) PO SCH (10:45)
[2019-08-01] MEDS: amLODIPine BESYLATE 10 MG TABLET (FP) PO SCH (10:45)
[2019-08-01] MEDS: METHOCARBAMOL 500 MG TABLET PO PRN ×2 (10:46→22:22)
[2019-08-01] MEDS: FLUoxetine HCL 20 MG CAPSULE (FP) PO SCH (10:47)
[2019-08-01] MEDS: chlordiazePOXIDE HCL 10 MG CAPSULE PO PRN (10:48)
[2019-08-01 10:56] LABS: HEMATOCRIT 43.3 % (35.4-49); HEMOGLOBIN 14.6 GM/dL (11.7-16.9); MCH 30.2 pg (25.7-33.7); MCHC 33.8 g/dl (32.0-35.9); MEAN CELL VOLUME 89.6 fl (80-96); MEAN PLT VOLUME 8.8 fl (7.5-11.1); PLATELET COUNT 219 K/MM3 (134-434); RBC 4.84 M/mm3 (4.00-5.60); RDW 16.1 % (11.9-15.9); WHITE BLOOD COUNT 5.7 K/mm3 (4.0-10.0)
--- NOTE | 2019-08-01 11:10 | PN ---
S CIWA - CIWA Score Nausea/Vomitin-Mild Nausea/No Vomiting Muscle Tremors: 4-Moderate,w/Arms Extend Anxiety: 3 Agitation: 3 Paroxysmal Sweats: 1-Minimal Palms Moist Orientation: 0-Oriented Tacttile Disturbances: 1-Very Mild Itch/Numbness Auditory Disturbances: 1-Very Mild Visual Disturbances: 0-None Headache: 0-None Present CIWA-Ar Total Score: 14 BHS Progress Note (SOAP) Subjective: doing well with librium detox regimen ate breakfast ambulating on hallway less tremor sleep better at night Objective: 08/01/19 11:10 Vital Signs Temperature 97.6 F 08/01/19 09:51 Pulse Rate 98 H 08/01/19 09:51 Respiratory Rate 20 08/01/19 09:51 Blood Pressure 124/88 08/01/19 09:51 O2 Sat by Pulse Oximetry (%) Laboratory Last Values WBC 5.7 K/mm3 (4.0-10.0) 08/01/19 08:00 RBC 4.84 M/mm3 (4.00-5.60) 08/01/19 08:00 Hgb 14.6 GM/dL (11.7-16.9) 08/01/19 08:00 Hct 43.3 % (35.4-49) 08/01/19 08:00 MCV 89.6 fl (80-96) 08/01/19 08:00 MCH 30.2 pg (25.7-33.7) D 08/01/19 08:00 MCHC 33.8 g/dl (32.0-35.9) 08/01/19 08:00 RDW 16.1 % (11.9-15.9) H 08/01/19 08:00 Plt Count 219 K/MM3 (134-434) D 08/01/19 08:00 MPV 8.8 fl (7.5-11.1) 08/01/19 08:00 lab noted Assessment: 08/01/19 11:10 alcohol withdrawal sx Plan: continue librium detox regimen
[2019-08-01 11:15] LABS: ALBUMIN 3.7 g/dl (3.4-5.0); BILIRUBIN,TOTAL 1.2 mg/dL (0.2-1); CALCIUM 8.9 mg/dL (8.5-10.1); TOT PROT 7.1 g/dl (6.4-8.2)
[2019-08-01] MEDS: ALBUTEROL SO4 8 GM HFA INHALER IH PRN ×2 (14:33→22:23)
[2019-08-01] MEDS ORDERED: NICOTINE POLACRILEX 2 MG GUM BUC PRN (20:47)
[2019-08-01] MEDS: THIAMINE HCL 100 MG TABLET (FP) PO SCH (22:22)
[2019-08-01] MEDS: MELATONIN 5 MG TABLETS PO PRN (22:22)
[2019-08-02] MEDS: chlordiazePOXIDE 5 MG CAPSULE PO SCH ×3 (05:40→21:55)
[2019-08-02] MEDS: METHOCARBAMOL 500 MG TABLET PO PRN ×2 (05:43→18:12)
[2019-08-02] MEDS: IBUPROFEN 400 MG TABLET (FP) PO PRN ×2 (05:44→21:54)
[2019-08-02] MEDS: ALBUTEROL SO4 8 GM HFA INHALER IH PRN (05:46)
[2019-08-02] MEDS: amLODIPine BESYLATE 10 MG TABLET (FP) PO SCH (10:07)
[2019-08-02] MEDS: FLUoxetine HCL 20 MG CAPSULE (FP) PO SCH (10:07)
[2019-08-02] MEDS: PRENATAL VITAMINS W/ FOLIC ACID TABLET (FP) PO SCH (10:07)
[2019-08-02] MEDS: chlordiazePOXIDE HCL 10 MG CAPSULE PO PRN (10:09)
[2019-08-02] MEDS: BISMUTH SUBSALICYLATE 524 MG/30 ML UD PO PRN (10:45)
--- NOTE | 2019-08-02 12:08 | PN ---
S CIWA - CIWA Score Nausea/Vomitin-Mild Nausea/No Vomiting Muscle Tremors: 2 Anxiety: 3 Agitation: 2 Paroxysmal Sweats: 2 Orientation: 0-Oriented Tacttile Disturbances: 1-Very Mild Itch/Numbness Auditory Disturbances: 0-None Visual Disturbances: 0-None Headache: 1-Very Mild CIWA-Ar Total Score: 12 S Progress Note (SOAP) Subjective: doing well with librium detox regimen less tremor mild anxiety sleep better at night Objective: 08/02/19 12:07 Vital Signs Temperature 96.5 F L 08/02/19 09:05 Pulse Rate 95 H 08/02/19 09:05 Respiratory Rate 19 08/02/19 09:05 Blood Pressure 121/86 08/02/19 09:05 O2 Sat by Pulse Oximetry (%) Laboratory Last Values WBC 5.7 K/mm3 (4.0-10.0) 08/01/19 08:00 RBC 4.84 M/mm3 (4.00-5.60) 08/01/19 08:00 Hgb 14.6 GM/dL (11.7-16.9) 08/01/19 08:00 Hct 43.3 % (35.4-49) 08/01/19 08:00 MCV 89.6 fl (80-96) 08/01/19 08:00 MCH 30.2 pg (25.7-33.7) D 08/01/19 08:00 MCHC 33.8 g/dl (32.0-35.9) 08/01/19 08:00 RDW 16.1 % (11.9-15.9) H 08/01/19 08:00 Plt Count 219 K/MM3 (134-434) D 08/01/19 08:00 MPV 8.8 fl (7.5-11.1) 08/01/19 08:00 Sodium 140 mmol/L (136-145) 08/01/19 08:00 Potassium 4.0 mmol/L (3.5-5.1) 08/01/19 08:00 Chloride 103 mmol/L (98-107) 08/01/19 08:00 Carbon Dioxide 28 mmol/L (21-32) 08/01/19 08:00 Anion Gap 9 MMOL/L (8-16) 08/01/19 08:00 BUN 14.0 mg/dL (7-18) 08/01/19 08:00 Creatinine 1.0 mg/dL (0.55-1.3) 08/01/19 08:00 Est GFR (CKD-EPI)AfAm 108.63 08/01/19 08:00 Est GFR (CKD-EPI)NonAf 93.73 08/01/19 08:00 Random Glucose 98 mg/dL (74-106) 08/01/19 08:00 Calcium 8.9 mg/dL (8.5-10.1) 08/01/19 08:00 Total Bilirubin 1.2 mg/dL (0.2-1) H 08/01/19 08:00 AST 54 U/L (15-37) H 08/01/19 08:00 ALT 88 U/L (13-61) H 08/01/19 08:00 Alkaline Phosphatase 81 U/L (45-117) 08/01/19 08:00 Total Protein 7.1 g/dl (6.4-8.2) 08/01/19 08:00 Albumin 3.7 g/dl (3.4-5.0) 08/01/19 08:00 RPR Titer Nonreactive (NONREACTIVE) 08/01/19 08:00 lab noted mild anxiousness Assessment: 08/02/19 12:07 alcohol withdrawal sx Plan: continue librium detox regimen
[2019-08-02] MEDS: ONDANSETRON *ODT* 4 MG TABLET SL PRN (17:00)
[2019-08-02] MEDS: THIAMINE HCL 100 MG TABLET (FP) PO SCH (21:54)
[2019-08-02] MEDS: MELATONIN 5 MG TABLETS PO PRN (21:55)
[2019-08-03] MEDS ORDERED: chlordiazePOXIDE HCL 10 MG CAPSULE PO PRN
[2019-08-03] MEDS: ALBUTEROL SO4 8 GM HFA INHALER IH PRN (04:37)
[2019-08-03] MEDS ORDERED: chlordiazePOXIDE HCL 10 MG CAPSULE PO SCH (05:00)
[2019-08-03] MEDS: METHOCARBAMOL 500 MG TABLET PO PRN (05:38)
[2019-08-03] MEDS: BISMUTH SUBSALICYLATE 524 MG/30 ML UD PO PRN (06:06)
[2019-08-03 06:26] VITALS: BP 118/61; PULSE 71; TEMP 97.6
[2019-08-03] MEDS: IBUPROFEN 400 MG TABLET (FP) PO PRN (06:43)
[2019-08-03] MEDS: PRENATAL VITAMINS W/ FOLIC ACID TABLET (FP) PO SCH (09:42)
[2019-08-03] MEDS: amLODIPine BESYLATE 10 MG TABLET (FP) PO SCH (09:42)
[2019-08-03] MEDS: FLUoxetine HCL 20 MG CAPSULE (FP) PO SCH (09:42)
--- NOTE | 2019-08-03 12:14 | DS ---
[facility] Detox Discharge Summary Admission Date: 07/31/19 Discharge Date: 08/03/19 - History Present History: Alcohol Dependence Additional Comments: 38 years old male admitted on 07/31/19 for alcohol withdrawal sx management did well with librium detox regimen no complication through out the detox stay alert oriented x 3 cardiac S1S2 regular rhythm respiratory clear lung bilaterally on auscultatin abdomen soft obese round non rebound tenderness - Physical Exam Results Vital Signs: Vital Signs Temperature 97.6 F 08/03/19 06:25 Pulse Rate 71 08/03/19 06:25 Respiratory Rate 18 08/03/19 06:25 Blood Pressure 118/61 08/03/19 06:25 O2 Sat by Pulse Oximetry (%) Pertinent Admission Physical Exam Findings: alcohol withdrawal sx Laboratory Last Values WBC 5.7 K/mm3 (4.0-10.0) 08/01/19 08:00 RBC 4.84 M/mm3 (4.00-5.60) 08/01/19 08:00 Hgb 14.6 GM/dL (11.7-16.9) 08/01/19 08:00 Hct 43.3 % (35.4-49) 08/01/19 08:00 MCV 89.6 fl (80-96) 08/01/19 08:00 MCH 30.2 pg (25.7-33.7) D 08/01/19 08:00 MCHC 33.8 g/dl (32.0-35.9) 08/01/19 08:00 RDW 16.1 % (11.9-15.9) H 08/01/19 08:00 Plt Count 219 K/MM3 (134-434) D 08/01/19 08:00 MPV 8.8 fl (7.5-11.1) 08/01/19 08:00 Sodium 140 mmol/L (136-145) 08/01/19 08:00 Potassium 4.0 mmol/L (3.5-5.1) 08/01/19 08:00 Chloride 103 mmol/L (98-107) 08/01/19 08:00 Carbon Dioxide 28 mmol/L (21-32) 08/01/19 08:00 Anion Gap 9 MMOL/L (8-16) 08/01/19 08:00 BUN 14.0 mg/dL (7-18) 08/01/19 08:00 Creatinine 1.0 mg/dL (0.55-1.3) 08/01/19 08:00 Est GFR (CKD-EPI)AfAm 108.63 08/01/19 08:00 Est GFR (CKD-EPI)NonAf 93.73 08/01/19 08:00 Random Glucose 98 mg/dL (74-106) 08/01/19 08:00 Calcium 8.9 mg/dL (8.5-10.1) 08/01/19 08:00 Total Bilirubin 1.2 mg/dL (0.2-1) H 08/01/19 08:00 AST 54 U/L (15-37) H 08/01/19 08:00 ALT 88 U/L (13-61) H 08/01/19 08:00 Alkaline Phosphatase 81 U/L (45-117) 08/01/19 08:00 Total Protein 7.1 g/dl (6.4-8.2) 08/01/19 08:00 Albumin 3.7 g/dl (3.4-5.0) 08/01/19 08:00 RPR Titer Nonreactive (NONREACTIVE) 08/01/19 08:00 lab noted - Treatment Hospital Course: Detox Protocol Followed, Detoxed Safely, Responded well, Discharged Condition Good, Rehab Referral Accepted Patient has Accepted [facility] - Medication Discharge Medications: Ambulatory Orders clonazePAM [Klonopin -] 0.5 mg PO TID 09/02/14 Fluoxetine HCl [Prozac] 40 mg PO DAILY 10/20/18 Albuterol Sulfate Inhaler - [Ventolin HFA Inhaler -] 2 puff IH Q4H PRN 30 Days # 1 inhaler 10/24/18 Amlodipine Besylate [Norvasc -] 10 mg PO DAILY 07/31/19 Baclofen [Lioresal -] 10 mg PO PRN 07/31/19 Quetiapine Fumarate [Seroquel -] 100 mg PO PRN PRN 07/31/19 - Diagnosis (1) Alcohol dependence, episodic drinking behavior Status: Acute (2) Asthma Status: Chronic Qualifiers: Asthma severity: mild Asthma persistence: intermittent Asthma complication type: with status asthmaticus Qualified Code(s): J45.22 - Mild intermittent asthma with status asthmaticus (3) Hypertension Status: Chronic Qualifiers: Hypertension type: essential hypertension Qualified Code(s): I10 - Essential (primary) hypertension - AMA Did Patient Leave Against Medical Advice: No CIWA Score - CIWA Score Nausea/Vomitin-No Nausea/No Vomiting Muscle Tremors: 1-None Visible, but [place] Anxiety: 2 Agitation: 1-Slight > Activity Paroxysmal Sweats: 1-Minimal Palms Moist Orientation: 0-Oriented Tacttile Disturbances: 1-Very Mild Itch/Numbness Auditory Disturbances: 0-None Visual Disturbances: 0-None Headache: 1-Very Mild CIWA-Ar Total Score: 7
[2019-08-04] MEDS ORDERED: chlordiazePOXIDE HCL 10 MG CAPSULE PO ONE (05:00)
== END 2019-08-03 08:26 | disposition home or self-care (01) | DRG 775 ==
LOC: YASAS 10:46 → Y3N 13:48
PROVIDERS: ADMIT Allergy & Immunology; ATTEND Allergy & Immunology
PROC: HZ2ZZZZ Detoxification Services for Substance Abuse Treatment (ICD-10-PCS; principal; 2019-07-31)
DX: F10.230 Alcohol dependence with withdrawal, uncomplicated (principal); F10.24 Alcohol dependence with alcohol-induced mood disorder; F10.282 Alcohol dependence with alcohol-induced sleep disorder; F31.81 Bipolar II disorder; F41.9 Anxiety disorder, unspecified; I10 Essential (primary) hypertension; J45.22 Mild intermittent asthma with status asthmaticus; L20.9 Atopic dermatitis, unspecified; L29.9 Pruritus, unspecified; M54.5 Low back pain; G89.29 Other chronic pain; R00.0 Tachycardia, unspecified; Z87.891 Personal history of nicotine dependence; Z86.69 Personal history of other diseases of the nervous system and sense organs; Z91.013 Allergy to seafood
CPT/HCPCS: 36415; 80053; 85027; 86593; 93005; 93010; Q0162

== ENCOUNTER 2019-09-26 09:35 | Inpatient (IN) | payer OTHER ==
[2019-09-26 10:24] VITALS: BMI 38.0
--- NOTE | 2019-09-26 12:21 | HP ---
CIWA Score Nausea/Vomitin Muscle Tremors: 2 Anxiety: 4-Mod. Anxious/Guarded Agitation: 2 Paroxysmal Sweats: 2 Orientation: 1-Uncertain about Date Tacttile Disturbances: 1-Very Mild Itch/Numbness Auditory Disturbances: 0-None Visual Disturbances: 0-None Headache: 0-None Present CIWA-Ar Total Score: 15 - Admission Criteria OASAS Guidelines: Admission for Medically Managed Detox: Requires at least one of the followin. CIWA greater than 12 2. Seizures within the past 24 hours 3. Delirium tremens within the past 24 hours 4. Hallucinations within the past 24 hours 5. Acute intervention needed for co occurring medical disorder 6. Acute intervention needed for co occurring psychiatric disorder 7. Severe withdrawal that cannot be handled at a lower level of care (continued vomiting, continued diarrhea, abnormal vital signs) requiring intravenous medication and/or fluids 8. Patient presents the following: CIWA greater than 12 Admission Criteria Met: Admission criteria met Admitting History and Physical - Admission Chief Complaint: Alcohol withdrawal sx History of Present Illness: Patient is a 39 yo male with hx of alcohol and cocaine dependence is here seeking inpatient alcohol detox d/t withdrawal sx when he does not drink. Reports recent emergency room visit at [facility] after attempting to detox at home. Reports no prior hx of MAT tx. Reports hx of withdrawal seizure with last episode six months ago. Reports on percocet for chronic back pain. PMHX: chronic back pain, HTN Psych: depression, anxiety, bipolar on prozac Denies SI/HI denies hx of suicide attempt Others' Prescriptions Patient Name: Ricky Kumar Date: 1980 Address: [address] [place] [address] Sex: Male Rx Written Rx Dispensed Drug Quantity Days Supply Prescriber Name 09/13/2019 09/13/2019 oxycodone-acetaminophen 10-325 mg tab 60 30 Howard Robins 09/12/2019 09/12/2019 chlordiazepoxide 25 mg capsule 15 4 Kelvin Pope 08/30/2019 08/30/2019 chlordiazepoxide 25 mg capsule 6 2 Nilton Clayton 08/12/2019 08/15/2019 oxycodone-acetaminophen 10-325 mg tab 60 30 Howard Robins 07/15/2019 07/15/2019 oxycodone-acetaminophen 10-325 mg tab 60 30 Howard Robins 06/16/2019 06/16/2019 oxycodone-acetaminophen 10-325 mg tab 60 30 JulienneHoward jones 05/11/2019 05/11/2019 oxycodone-acetaminophen 10-325 mg tab 60 30 Radha Poloe [employer] 04/19/2019 04/19/2019 oxycodone-acetaminophen 7.5-325 mg tablet 46 23 Howard Robins 04/13/2019 04/13/2019 oxycodone-acetaminophen 7.5-325 mg tablet 14 7 RasmaryRadha patele [employer] 10/15/2018 10/16/2018 oxycodone-acetaminophen 7.5-325 mg tablet 120 30 Howard Robins Patient Name: Ricky Milner Date: 1980 Address: [address] [place] [address] Sex: Male Rx Written Rx Dispensed Drug Quantity Days Supply Prescriber Name 04/17/2019 04/28/2019 balance vaporizer equal 1.3mg thc and 1.3mg cbd/ inhalation 1 15 Howard Robins 04/17/2019 04/28/2019 forte high thc 9.7mg thc and <0.1mg cbd/capsule 1 15 Howard Robins History Source: Patient Limitations to Obtaining History: No Limitations - Smoking History Smoking history: Former smoker Have you smoked in the past 12 months: No Aproximately how many cigarettes per day: 5 - Alcohol/Substance Use Hx Alcohol Use: No Admission [facility] Allergies/Adverse Reactions: Allergies Allergy/AdvReac Type Severity Reaction Status Date / Time No Known Drug Allergies Allergy Verified 07/31/19 10:51 seafood Allergy Mild Rash Uncoded 09/26/19 10:12 Exam Limitations: No Limitations - Ebola screening Have you traveled outside of the country in the last 21 days: No (N) Have you had contact with anyone from an Ebola affected area: No Do you have a fever: No - Review of Systems Constitutional: Chills, Loss of Appetite, Changes in sleep, Other (sweats) EENT: reports: No Symptoms Reported Respiratory: reports: SOB with Exertion (or with anxiety) Cardiac: reports: No Symptoms Reported GI: reports: Nausea, Poor Appetite, Poor Fluid Intake, Vomiting : reports: No Symptoms Reported Musculoskeletal: reports: See HPI, Back Pain Integumentary: reports: No Symptoms Reported Neuro: reports: No Symptoms reported Endocrine: reports: No Symptoms Reported Hematology: reports: No Symptoms Reported Psychiatric: reports: Orientated x3, Anxious Other Systems: Reviewed and Negative Patient History - Patient Medical History Hx Anemia: No Hx Asthma: Yes Hx Chronic Obstructive Pulmonary Disease (COPD): No Hx Cancer: No Hx Cardiac Disorders: No Hx Congestive Heart Failure: No Hx Hypertension: Yes Hx Hypercholesterolemia: No Hx Pacemaker: No HX Cerebrovascular Accident: No Hx Seizures: Yes (alcohol related) Hx Dementia: No Hx Diabetes: No Hx Gastrointestinal Disorders: No Hx Liver Disease: No Hx Genitourinary Disorders: No Hx Sexually Transmitted Disorders: No Hx Renal Disease (ESRD): No Hx Thyroid Disease: No Hx Human Immunodeficiency Virus (HIV): No Hx Hepatitis C: No Hx Depression: Yes Hx Suicide Attempt: No Hx Bipolar Disorder: Yes Hx Schizophrenia: No - Patient Surgical History Past Surgical History: Yes Hx Neurologic Surgery: Yes (due to fusion of L2 L3) Hx Cataract Extraction: No Hx Cardiac Surgery: No Hx Lung Surgery: No Hx Breast Surgery: No Hx Breast Biopsy: No Hx Abdominal Surgery: No Hx Appendectomy: No Hx Cholecystectomy: No Hx Genitourinary Surgery: No Hx Section: No Hx Orthopedic Surgery: Yes (left gangliaon cyst removed 1993) Other Surgical History: ganglion cyst, left wrist Anesthesia Reaction: No - PPD History Previous Implant?: No Documented Results: Negative w/proof Date: 10/21/18 Results: 0 mm PPD to be Administered?: No - Smoking Cessation Smoking history: Former smoker Have you smoked in the past 12 months: No Aproximately how many cigarettes per day: 5 Cigars Per Day: 1 Hx Chewing Tobacco Use: No Initiated information on smoking cessation: Yes 'Breaking Loose' booklet given: 09/26/19 - Substance & Tx. History Hx Alcohol Use: Yes Hx Substance Use: Yes Substance Use Type: Alcohol Hx Substance Use Treatment: Yes ([facility] July 2019) - Substances abused Alcohol Substance route: Oral Frequency: Daily Amount used: 6 -8 x (24 oz )beer Age of first use: 24 Date of last use: 09/26/19 Cocaine Substance route: Inhalation Frequency: 1-3 times last 30 days Amount used: $20 Age of first use: 35 Date of last use: 09/24/19 Admission Physical Exam [facility] - Vital Signs Vital Signs: Vital Signs - 24 hr 09/26/19 10:19 Temperature 97.4 F L Pulse Rate 120 H Respiratory 18 Rate Blood Pressure 158/100 - Physical General Appearance: Yes: Appropriately Dressed, Obese, Sweating, Anxious HEENTM: Yes: Hearing grossly Normal, Normal ENT Inspection, Normocephalic, Normal Voice, JENNY, Pharynx Normal, Tm's normal Respiratory: Yes: Chest Non-Tender, Lungs Clear, Normal Breath Sounds, No Respiratory Distress, No Accessory Muscle Use Neck: Yes: Within Normal Limits Breast: Yes: Breast Exam Deferred Cardiology: Yes: Regular Rhythm, Tachycardia Abdominal: Yes: Normal Bowel Sounds, Non Tender, Flat, Soft Genitourinary: Yes: Within Normal Limits Back: Yes: Normal Inspection Musculoskeletal: Yes: full range of Motion, Gait Steady, Pelvis Stable, Back pain Extremities: Yes: Within Normal Limits, Normal Capillary Refill, Normal Inspection, Normal Range of Motion Neurological: Yes: 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 II-XII NML intact, Fully Oriented, Alert, Motor Strength 5/5 Integumentary: Yes: Normal Color, Warm, Diaphoresis Lymphatic: Yes: Within Normal Limits - Diagnostic (1) Alcohol dependence with withdrawal, uncomplicated Current Visit: Yes Status: Acute (2) Asthma Current Visit: Yes Status: Chronic Qualifiers: Asthma severity: mild Asthma persistence: intermittent Asthma complication type: with status asthmaticus Qualified Code(s): J45.22 - Mild intermittent asthma with status asthmaticus (3) Chronic low back pain Current Visit: Yes Status: Chronic Qualifiers: Back pain laterality: midline Sciatica presence: unspecified whether sciatica present Qualified Code(s): M54.5 - Low back pain; G89.29 - Other chronic pain (4) Hypertension Current Visit: Yes Status: Chronic Qualifiers: Hypertension type: essential hypertension Qualified Code(s): I10 - Essential (primary) hypertension Cleared for Admission [facility] - Detox or Rehab [facility] Level of Care: Medically Managed Detox Regimen/Protocol: Ativan Breathalyzer - Breathalyzer Breathalyzer: 0.222 Urine Drug Screen - Test Device Lot number: [id number] Expiration date: 03/12/21 - Control Is test valid?: Yes - Results Drug screen NEGATIVE: No Urine drug screen results: MARIANNE-Cocaine Inpatient Rehab Admission - Rehab Decision to Admit Inpatient rehab admission?: No
[2019-09-26] MEDS ORDERED: ALBUTEROL SO4 0.083% IH SOL 2.5 MG/3 ML VIAL.NEB. NEB PRN (12:26)
[2019-09-26] MEDS ORDERED: ACETAMINOPHEN 325 MG TABLET (FP) PO PRN (12:26)
[2019-09-26] MEDS ORDERED: BISMUTH SUBSALICYLATE 524 MG/30 ML UD PO PRN (12:26)
[2019-09-26] MEDS ORDERED: MENTHOL/PHENOL 1 EACH UD MM PRN (12:26)
[2019-09-26] MEDS ORDERED: MAGNESIUM HYDROX 2400MG/30ML ORAL SUSPENSION 30 ML CUP PO PRN (12:26)
[2019-09-26] MEDS ORDERED: hydrOXYzine PAMOATE 25 MG CAPSULE (FP) PO PRN (12:26)
[2019-09-26] MEDS ORDERED: MAGNESIUM CITRATE 300 ML BOTTLE PO PRN (12:26)
[2019-09-26] MEDS ORDERED: MAG HYDROX/AL HYDROX/SIMETH 30 ML UNIT-DOSE CUP PO PRN (12:26)
[2019-09-26] MEDS: LORazepam 1 MG TABLET PO PRN ×2 (14:03→19:23)
[2019-09-26] MEDS: ALBUTEROL SO4 8 GM HFA INHALER IH PRN (14:04)
[2019-09-26] MEDS: amLODIPine BESYLATE 10 MG TABLET (FP) PO SCH (16:19)
[2019-09-26] MEDS: LORazepam 2 MG TABLET PO SCH ×2 (16:21→22:33)
--- NOTE | 2019-09-26 17:06 | CONSULT ---
[facility] Psychiatric Consult - Data Date of interview: 09/26/19 Admission source: [facility] Identifying data: Patient is a 39 year old single male, father of two, unemployed, domiciled, and is not currently receiving financial assistance. This is one of multiple admissions for patient. Patient admitted to for alcohol and cocaine dependence. Substance Abuse History: Smoking Cessation. Smoking history: Former smoker. Have you smoked in the past 12 months: No. Aproximately how many cigarettes per day: 5. Cigars Per Day: 1. Hx Chewing Tobacco Use: No. Initiated information on smoking cessation: Yes. 'Breaking Loose' booklet given: . - Substance & Tx. History. Hx Alcohol Use: Yes. Hx Substance Use: Yes. Substance Use Type: Alcohol. Hx Substance Use Treatment: Yes ([facility] July 2019). - Substances abused. Alcohol. Substance route: Oral. Frequency: Daily. Amount used: 6 -8 x (24 oz )beer. Age of first use: 24. Date of last use: 09/26/19. Cocaine. Substance route: Inhalation. Frequency: 1-3 times last 30 days. Amount used: $20. Age of first use: 35. Date of last use: 09/24/19 Medical History: Significant for bronchial asthma, hypertension, low back pain, history of alcohol related seizure, neurosurgery for lumbar fusion L2L3 and removal of ganglion cyst left wrist. Psychiatric History: Patient denies h/o psychiatric hospitalization and suicide attempt. Mr. Kumar reports history of outpatient psychatric care in [place], [place] by Dr. frye. He was prescribed prozac 60mg + Seroquel 200mg. Diagnosis of MDD. Mr. Kumar has not had outpatient psychiatric care in approximately 6-8 months. States that he has refills at home but is not compliant with his medications. At present patient reports feeling sad and is experiencing difficulty sleeping. Physical/Sexual Abuse/Trauma History: denies. Mental Status Exam - Mental Status Exam Alert and Oriented to: Time, Place, Person Cognitive Function: Good Patient Appearance: Well Groomed Mood: Withdrawn Affect: Appropriate Patient Behavior: Appropriate, Cooperative Speech Pattern: Appropriate Voice Loudness: Normal Thought Process: Goal Oriented Thought Disorder: Not Present Hallucinations: Denies Suicidal Ideation: Denies Homicidal Ideation: Denies Insight/Judgement: Poor Sleep: Poorly Appetite: Fair Muscle strength/Tone: Normal Gait/Station: Normal Psychiatric Findings - Problem List ([place] 1, 2,3) (1) Cocaine dependence Current Visit: Yes Status: Acute (2) Alcohol dependence with withdrawal, uncomplicated Current Visit: Yes Status: Acute (3) Substance-induced sleep disorder Current Visit: Yes Status: Acute (4) MDD (major depressive disorder) Current Visit: Yes Status: Chronic (5) Alcohol-induced mood disorder Current Visit: Yes Status: Acute - Initial Treatment Plan Initial Treatment Plan: Psychoeducation provided. Detoxification in progress. Will order Prozac 20mg + Belsomra 10mg HS. Benefits and side effects discussed. Verbal consent given.
[2019-09-26] MEDS: ONDANSETRON *ODT* 4 MG TABLET SL PRN (19:09)
--- NOTE | 2019-09-26 19:32 | PN ---
S Progress Note Note: Called to see patient w/ HR: was 131. Patient is alert and oriented. States feels heart beating fast in chest. Denies chest pain or neck or arm pain. Tremors. HR: 126/RR. Lungs CTA Pulse Ox = 95 % Vital Signs 09/26/19 09/26/19 09/26/19 14:16 17:34 19:11 Temperature 97.9 F 97.9 F 97.9 F Pulse Rate 115 H 125 H 131 H Respiratory 20 18 18 Rate Blood Pressure 147/96 153/91 157/96 Plan: Ativan 1 mg PO now and continue q4h prn, as prescribed. EKG obtained 15 min after Ativan. Results: Vent rate = 111. QT/QTc: 336/456. (L ) axis deviation No significant changes from prior EKG's. Patient instructed in stress reduction exercise. Clonidine for DBP > 90
[2019-09-26] MEDS ORDERED: cloNIDine HCL 0.1 MG TABLET PO ONE (20:22)
[2019-09-26] MEDS: THIAMINE HCL 100 MG TABLET (FP) PO SCH (22:33)
[2019-09-26] MEDS: SUVOREXANT 10 MG TABLET PO PRN (22:34)
[2019-09-27] MEDS: LORazepam 2 MG TABLET PO SCH ×4 (05:25→22:13)
[2019-09-27] MEDS: ONDANSETRON *ODT* 4 MG TABLET SL PRN ×2 (05:27→20:48)
[2019-09-27] MEDS: ALBUTEROL SO4 8 GM HFA INHALER IH PRN ×2 (09:06→22:17)
[2019-09-27] MEDS ORDERED: amLODIPine BESYLATE 10 MG TABLET (FP) PO SCH (10:00)
--- NOTE | 2019-09-27 10:21 | PN ---
S CIWA - CIWA Score Nausea/Vomitin-Mild Nausea/No Vomiting Muscle Tremors: 2 Anxiety: 2 Agitation: 2 Paroxysmal Sweats: No Perspiration Orientation: 0-Oriented Tacttile Disturbances: 1-Very Mild Itch/Numbness Auditory Disturbances: 0-None Visual Disturbances: 0-None Headache: 1-Very Mild CIWA-Ar Total Score: 9 B[facility] Progress Note (SOAP) Subjective: alert,irritable,anxious,interrupted sleep,tremor Objective: 09/27/19 10:20 Vital Signs Temperature 98.4 F 09/27/19 09:38 Pulse Rate 91 H 09/27/19 09:38 Respiratory Rate 09/27/19 09:38 Blood Pressure 137/86 09/27/19 09:38 O2 Sat by Pulse Oximetry (%) 09/27/19 10:21 labs pending Assessment: 09/27/19 10:21 withdrawal symptom Plan: continue detox ativan regimen
[2019-09-27] MEDS: FLUoxetine HCL 20 MG CAPSULE (FP) PO SCH (10:23)
[2019-09-27] MEDS: amLODIPine BESYLATE 10 MG TABLET (FP) PO SCH (10:23)
[2019-09-27] MEDS: PRENATAL VITAMINS W/ FOLIC ACID TABLET (FP) PO SCH (10:23)
[2019-09-27] MEDS ORDERED: COLLOIDAL OATMEAL 1 BAR EACH TP PRN (10:38)
[2019-09-27] MEDS: METHOCARBAMOL 500 MG TABLET PO PRN ×2 (10:49→17:22)
[2019-09-27] MEDS ORDERED: cloNIDine HCL 0.1 MG TABLET PO ONE (10:52)
[2019-09-27 11:02] LABS: HEMATOCRIT 37.6 % (35.4-49); HEMOGLOBIN 12.4 GM/dL (11.7-16.9); MCH 31.5 pg (25.7-33.7); MEAN CELL VOLUME 95.4 fl (80-96); MEAN PLT VOLUME 8.2 fl (7.5-11.1); PLATELET COUNT 316 K/MM3 (134-434); RBC 3.94 M/mm3 (4.00-5.60); WHITE BLOOD COUNT 6.3 K/mm3 (4.0-10.0)
[2019-09-27 11:36] LABS: ALBUMIN 2.8 g/dl (3.4-5.0); BILIRUBIN,TOTAL 0.7 mg/dL (0.2-1); BLOOD UREA NITROGEN 6.2 mg/dL (7-18); CALCIUM 8.5 mg/dL (8.5-10.1); CREATININE 0.7 mg/dL (0.55-1.3); POTASSIUM 3.4 mmol/L (3.5-5.1); TOT PROT 6.1 g/dl (6.4-8.2)
--- NOTE | 2019-09-27 14:54 | EKG ---
Test Reason : Blood Pressure : / mmHG Vent. Rate : 111 BPM Atrial Rate : 111 BPM P-R Int : 162 ms QRS Dur : 098 ms QT Int : 336 ms P-R-T Axes : 055 -56 062 degrees QTc Int : 456 ms SINUS TACHYCARDIA LEFT AXIS DEVIATION ABNORMAL ECG WHEN COMPARED WITH ECG OF 31-JUL-2019 14:05, LEFT POSTERIOR FASCICULAR BLOCK IS NO LONGER PRESENT Confirmed by DEWAYNE FERNANDO, SHWETA ([id number]) on 09/27/2019 2:53:30 PM Referred By: QIAN Confirmed By:SHWETA BUCHANAN MD
[2019-09-27] MEDS: ACETAMINOPHEN 325 MG TABLET (FP) PO PRN (15:01)
[2019-09-27] MEDS: cloNIDine HCL 0.1 MG TABLET PO SCH (22:12)
[2019-09-27] MEDS: THIAMINE HCL 100 MG TABLET (FP) PO SCH (22:13)
[2019-09-27] MEDS: SUVOREXANT 10 MG TABLET PO PRN (22:15)
[2019-09-27] MEDS: MELATONIN 5 MG TABLETS PO PRN (22:17)
[2019-09-27] MEDS: IBUPROFEN 400 MG TABLET (FP) PO PRN (22:18)
[2019-09-28] MEDS: LORazepam 1 MG TABLET PO SCH ×4 (05:41→22:15)
[2019-09-28] MEDS: ACETAMINOPHEN 325 MG TABLET (FP) PO PRN (05:42)
[2019-09-28] MEDS: ALBUTEROL SO4 8 GM HFA INHALER IH PRN (05:43)
[2019-09-28] MEDS: PRENATAL VITAMINS W/ FOLIC ACID TABLET (FP) PO SCH (10:05)
[2019-09-28] MEDS: FLUoxetine HCL 20 MG CAPSULE (FP) PO SCH (10:05)
[2019-09-28] MEDS: amLODIPine BESYLATE 10 MG TABLET (FP) PO SCH (10:05)
[2019-09-28] MEDS: cloNIDine HCL 0.1 MG TABLET PO SCH ×2 (10:06→22:15)
[2019-09-28] MEDS: METHOCARBAMOL 500 MG TABLET PO PRN ×2 (10:07→22:20)
--- NOTE | 2019-09-28 10:34 | PN ---
S CIWA - CIWA Score Nausea/Vomitin-Mild Nausea/No Vomiting Muscle Tremors: 1-None Visible, but [place] Anxiety: 2 Agitation: 2 Paroxysmal Sweats: No Perspiration Orientation: 0-Oriented Tacttile Disturbances: 1-Very Mild Itch/Numbness Auditory Disturbances: 0-None Visual Disturbances: 0-None Headache: 1-Very Mild CIWA-Ar Total Score: 8 BHS Progress Note (SOAP) Subjective: alert,irritable,anxious,interrupted sleep,nausea Objective: 09/28/19 10:33 Vital Signs Temperature 98.0 F 09/28/19 09:24 Pulse Rate 86 09/28/19 09:24 Respiratory Rate 18 09/28/19 09:24 Blood Pressure 125/85 09/28/19 09:24 O2 Sat by Pulse Oximetry (%) 09/28/19 10:33 Laboratory Last Values WBC 6.3 K/mm3 (4.0-10.0) 09/27/19 08:15 RBC 3.94 M/mm3 (4.00-5.60) L 09/27/19 08:15 Hgb 12.4 GM/dL (11.7-16.9) 09/27/19 08:15 Hct 37.6 % (35.4-49) 09/27/19 08:15 MCV 95.4 fl (80-96) 09/27/19 08:15 MCH 31.5 pg (25.7-33.7) 09/27/19 08:15 MCHC 33.0 g/dl (32.0-35.9) 09/27/19 08:15 RDW 13.0 % (11.9-15.9) D 09/27/19 08:15 Plt Count 316 K/MM3 (134-434) D 09/27/19 08:15 MPV 8.2 fl (7.5-11.1) 09/27/19 08:15 Sodium 145 mmol/L (136-145) 09/27/19 08:15 Potassium 3.4 mmol/L (3.5-5.1) L 09/27/19 08:15 Chloride 106 mmol/L (98-107) 09/27/19 08:15 Carbon Dioxide 33 mmol/L (21-32) H 09/27/19 08:15 Anion Gap 7 MMOL/L (8-16) L 09/27/19 08:15 BUN 6.2 mg/dL (7-18) L 09/27/19 08:15 Creatinine 0.7 mg/dL (0.55-1.3) 09/27/19 08:15 Est GFR (CKD-EPI)AfAm 135.86 09/27/19 08:15 Est GFR (CKD-EPI)NonAf 117.22 09/27/19 08:15 Random Glucose 98 mg/dL (74-106) 09/27/19 08:15 Calcium 8.5 mg/dL (8.5-10.1) 09/27/19 08:15 Total Bilirubin 0.7 mg/dL (0.2-1) 09/27/19 08:15 AST 12 U/L (15-37) L 09/27/19 08:15 ALT 15 U/L (13-61) 09/27/19 08:15 Alkaline Phosphatase 111 U/L (45-117) 09/27/19 08:15 Total Protein 6.1 g/dl (6.4-8.2) L 09/27/19 08:15 Albumin 2.8 g/dl (3.4-5.0) L 09/27/19 08:15 RPR Titer Nonreactive (NONREACTIVE) 09/27/19 08:15 Assessment: 09/28/19 10:37 withdrawal symptom Plan: continue detox,k is 3.4,k dur 20 meq po now then daily for 3 days,possible discharge in am
[2019-09-28] MEDS: ONDANSETRON *ODT* 4 MG TABLET SL PRN (10:42)
[2019-09-28] MEDS ORDERED: POTASSIUM CHLORIDE TABS 20 MEQ TABLET.ER (FP) PO ONE (11:00)
[2019-09-28] MEDS: IBUPROFEN 400 MG TABLET (FP) PO PRN ×2 (17:52→22:21)
[2019-09-28] MEDS: THIAMINE HCL 100 MG TABLET (FP) PO SCH (22:15)
[2019-09-28] MEDS: MELATONIN 5 MG TABLETS PO PRN (22:22)
[2019-09-29] MEDS ORDERED: LORazepam 0.5 MG TABLET PO PRN
[2019-09-29] MEDS: ONDANSETRON *ODT* 4 MG TABLET SL PRN (02:41)
[2019-09-29] MEDS ORDERED: LORazepam 0.5 MG TABLET PO SCH (05:00)
[2019-09-29] MEDS: ALBUTEROL SO4 8 GM HFA INHALER IH PRN (05:41)
[2019-09-29 06:30] VITALS: BP 118/79; PULSE 67; TEMP 97.3
--- NOTE | 2019-09-29 09:00 | DS ---
[facility] Detox Discharge Summary Admission Date: 09/26/19 Discharge Date: 09/29/19 - History Present History: Alcohol Dependence - Physical Exam Results Vital Signs: Vital Signs Temperature 97.3 F L 09/29/19 05:30 Pulse Rate 67 09/29/19 05:30 Respiratory Rate 18 09/29/19 05:30 Blood Pressure 118/79 09/29/19 05:30 O2 Sat by Pulse Oximetry (%) Pertinent Admission Physical Exam Findings: Vital Signs Temperature 97.3 F L 09/29/19 05:30 Pulse Rate 67 09/29/19 05:30 Respiratory Rate 18 09/29/19 05:30 Blood Pressure 118/79 09/29/19 05:30 O2 Sat by Pulse Oximetry (%) Laboratory Tests 09/27/19 09/27/19 09/27/19 08:15 08:15 08:15 WBC 6.3 RBC 3.94 L Hgb 12.4 Hct 37.6 MCV 95.4 MCH 31.5 MCHC 33.0 RDW 13.0 D Plt Count 316 D MPV 8.2 Sodium 145 Potassium 3.4 L Chloride 106 Carbon Dioxide 33 H Anion Gap 7 L BUN 6.2 L Creatinine 0.7 Est GFR (CKD-EPI)AfAm 135.86 Est GFR (CKD-EPI)NonAf 117.22 Random Glucose 98 Calcium 8.5 Total Bilirubin 0.7 AST 12 L ALT 15 Alkaline Phosphatase 111 Total Protein 6.1 L Albumin 2.8 L RPR Titer Nonreactive aaox3 ambulating no acute distress - Treatment Hospital Course: Detox Protocol Followed, Detoxed Safely, Responded well, Discharged Condition Good, Rehab Referral Accepted Patient has Accepted a Rehab Referral to: pt declined rehab; referral provided - Medication Discharge Medications: Ambulatory Orders Fluoxetine HCl [Prozac] 40 mg PO DAILY 10/20/18 Albuterol Sulfate Inhaler - [Ventolin HFA Inhaler -] 2 puff IH Q4H PRN 30 Days # 1 inhaler 10/24/18 Amlodipine Besylate [Norvasc -] 10 mg PO DAILY 07/31/19 - Diagnosis (1) Alcohol dependence with withdrawal, uncomplicated Status: Chronic (2) Alcohol dependence, uncomplicated Status: Chronic (3) Alcohol-induced mood disorder Status: Acute (4) Alcohol-induced mood disorder Status: Acute (5) Alcohol-induced sleep disorder Status: Acute (6) Anxiety Status: Acute (7) Cocaine dependence Status: Chronic Qualifiers: Substance use status: uncomplicated Qualified Code(s): F14.20 - Cocaine dependence, uncomplicated (8) Opioid dependence with withdrawal Status: Chronic (9) Sedative, hypnotic or anxiolytic abuse, uncomplicated Status: Chronic (10) Substance-induced anxiety disorder Status: Acute (11) Substance-induced sleep disorder Status: Acute (12) Asthma Status: Chronic Qualifiers: Asthma severity: mild Asthma persistence: intermittent Asthma complication type: with status asthmaticus Qualified Code(s): J45.22 - Mild intermittent asthma with status asthmaticus (13) Chronic low back pain Status: Chronic Qualifiers: Back pain laterality: midline Sciatica presence: unspecified whether sciatica present Qualified Code(s): M54.5 - Low back pain; G89.29 - Other chronic pain (14) Hypertension Status: Chronic Qualifiers: Hypertension type: essential hypertension Qualified Code(s): I10 - Essential (primary) hypertension (15) MDD (major depressive disorder) Status: Chronic (16) Mood disorder Status: Chronic (17) Bipolar II disorder Status: Ruled-out - AMA Did Patient Leave Against Medical Advice: No
[2019-09-29] MEDS ORDERED: POTASSIUM CHLORIDE TABS 20 MEQ TABLET.ER (FP) PO SCH (10:00)
[2019-09-30] MEDS ORDERED: LORazepam 0.5 MG TABLET PO ONE (05:00)
== END 2019-09-29 07:30 | disposition home or self-care (01) | DRG 774 ==
LOC: YASAS 09:35 → Y6N 12:43
PROVIDERS: ADMIT Allergy & Immunology; ATTEND Allergy & Immunology
PROC: HZ2ZZZZ Detoxification Services for Substance Abuse Treatment (ICD-10-PCS; principal; 2019-09-26)
DX: F10.230 Alcohol dependence with withdrawal, uncomplicated (principal); F10.24 Alcohol dependence with alcohol-induced mood disorder; F10.282 Alcohol dependence with alcohol-induced sleep disorder; F14.20 Cocaine dependence, uncomplicated; F19.280 Other psychoactive substance dependence with psychoactive substance-induced anxiety disorder; F19.282 Other psychoactive substance dependence with psychoactive substance-induced sleep disorder; F41.9 Anxiety disorder, unspecified; F39 Unspecified mood [affective] disorder; F31.81 Bipolar II disorder; J45.22 Mild intermittent asthma with status asthmaticus; M54.5 Low back pain; G89.29 Other chronic pain; R00.0 Tachycardia, unspecified; E66.9 Obesity, unspecified; Z68.38 Body mass index [BMI] 38.0-38.9, adult; Z87.891 Personal history of nicotine dependence; Z86.69 Personal history of other diseases of the nervous system and sense organs; Z98.1 Arthrodesis status; Z91.013 Allergy to seafood
CPT/HCPCS: 36415; 80053; 85027; 86593; 93005; 93010; 94640; J0735; Q0162

== ENCOUNTER 2019-11-01 11:50 | Inpatient (IN) | payer OTHER ==
--- NOTE | 2019-11-01 12:26 | HP ---
CIWA Score Nausea/Vomitin Muscle Tremors: 3 Anxiety: 3 Agitation: 2 Paroxysmal Sweats: 1-Minimal Palms Moist Orientation: 0-Oriented Tacttile Disturbances: 0-None Auditory Disturbances: 0-None Visual Disturbances: 1-Very Mild Sensitivity Headache: 2-Mild CIWA-Ar Total Score: 14 - Admission Criteria OASAS Guidelines: Admission for Medically Managed Detox: Requires at least one of the followin. CIWA greater than 12 2. Seizures within the past 24 hours 3. Delirium tremens within the past 24 hours 4. Hallucinations within the past 24 hours 5. Acute intervention needed for co occurring medical disorder 6. Acute intervention needed for co occurring psychiatric disorder 7. Severe withdrawal that cannot be handled at a lower level of care (continued vomiting, continued diarrhea, abnormal vital signs) requiring intravenous medication and/or fluids 8. Admitting History and Physical - Admission Chief Complaint: "i want to go to detox." History of Present Illness: Patient is a 39 yo male with hx of alcohol and cocaine dependence is here seeking inpatient alcohol detox d/t withdrawal sx when he does not drink. Reports recent emergency room visit at [facility] after attempting to detox at home. Reports no prior hx of MAT tx. Reports hx of withdrawal seizure with last episode six months ago. Reports on percocet for chronic back pain. PMHX: chronic back pain, HTN, asthma, seizure Psych: depression, anxiety, bipolar on prozac Denies SI/HI denies hx of suicide attempt History Source: Patient Limitations to Obtaining History: No Limitations - Past Medical History Cardiovascular: Yes: HTN Pulmonary: Yes: Asthma - Past Surgical History Additional Past Surgical History: fusion L2-L# and ganglion surgery - Advance Directives Advance Directives: No: Living Will, Health Care Proxy, DNR - Smoking History Smoking history: Former smoker Have you smoked in the past 12 months: No Aproximately how many cigarettes per day: 5 - Alcohol/Substance Use Hx Alcohol Use: Yes (6 cans of beer daily) Number of Drinks Daily: 6 History of Substance Use: reports: Cocaine - Social History Usual Living Arrangement: Yes: Alone Do you think of yourself as: Straight/Heterosexual ADL: Independent Occupation: unemployed History of Recent Travel: No Admission ROS BHS - HPI Allergies/Adverse Reactions: Allergies Allergy/AdvReac Type Severity Reaction Status Date / Time No Known Drug Allergies Allergy Verified 07/31/19 10:51 lactose AdvReac Verified 11/02/19 22:25 seafood Allergy Mild Rash Uncoded 11/01/19 12:25 Exam Limitations: No Limitations - Ebola screening Have you traveled outside of the country in the last 21 days: No (N) Have you had contact with anyone from an Ebola affected area: No Have you been sick,other than usual withdrawal symptoms: No Do you have a fever: No - Review of Systems Constitutional: Chills, Unintentional Wgt. Loss EENT: reports: No Symptoms Reported Respiratory: reports: No Symptoms reported Cardiac: reports: No Symptoms Reported GI: reports: No Symptoms Reported : reports: No Symptoms Reported Musculoskeletal: reports: No Symptoms Reported Integumentary: reports: No Symptoms Reported Neuro: reports: No Symptoms reported Endocrine: reports: No Symptoms Reported Hematology: reports: No Symptoms Reported Psychiatric: reports: Judgement Intact, Orientated x3, Agitated, Anxious Other Systems: Reviewed and Negative Patient History - Patient Medical History Hx Anemia: No Hx Asthma: Yes Hx Chronic Obstructive Pulmonary Disease (COPD): No Hx Cancer: No Hx Cardiac Disorders: No Hx Congestive Heart Failure: No Hx Hypertension: Yes Hx Hypercholesterolemia: No Hx Pacemaker: No HX Cerebrovascular Accident: No Hx Seizures: Yes (alcohol related) Hx Dementia: No Hx Diabetes: No Hx Gastrointestinal Disorders: No Hx Liver Disease: No Hx Genitourinary Disorders: No Hx Sexually Transmitted Disorders: No Hx Renal Disease (ESRD): No Hx Thyroid Disease: No Hx Human Immunodeficiency Virus (HIV): No Hx Hepatitis C: No Hx Depression: Yes Hx Suicide Attempt: No Hx Bipolar Disorder: Yes Hx Schizophrenia: No - Patient Surgical History Past Surgical History: Yes Hx Neurologic Surgery: Yes (due to fusion of L2 L3) Hx Cataract Extraction: No Hx Cardiac Surgery: No Hx Lung Surgery: No Hx Breast Surgery: No Hx Breast Biopsy: No Hx Abdominal Surgery: No Hx Appendectomy: No Hx Cholecystectomy: No Hx Genitourinary Surgery: No Hx Section: No Hx Orthopedic Surgery: Yes (left gangliaon cyst removed 1993) Other Surgical History: ganglion cyst, left wrist Anesthesia Reaction: No - PPD History Date: 10/21/18 Results: 0 mm - Smoking Cessation Smoking history: Former smoker Have you smoked in the past 12 months: No Aproximately how many cigarettes per day: 5 Cigars Per Day: 1 Hx Chewing Tobacco Use: No Initiated information on smoking cessation: No - Substances abused Alcohol Substance route: Oral Frequency: Daily Amount used: 6 cans of (24oz beers) Age of first use: 26 Date of last use: 11/01/19 Cocaine Substance route: Inhalation Frequency: 1-3 times last 30 days Amount used: $20 Age of first use: 37 Date of last use: 10/29/19 Admission Physical Exam [facility] - Physical General Appearance: Yes: Mild Distress, Irritable, Sweating, Anxious HEENTM: Yes: EOMI, Hearing grossly Normal, Normal ENT Inspection, Normocephalic , Normal Voice, JENNY, Pharynx Normal, Tm's normal Respiratory: Yes: Chest Non-Tender, Lungs Clear, Normal Breath Sounds, No Respiratory Distress, No Accessory Muscle Use Neck: Yes: No masses,lesions,Nodules, Trachea in good position Breast: Yes: Within Normal Limits Cardiology: Yes: Regular Rhythm, Regular Rate, S1, S2 Abdominal: Yes: Normal Bowel Sounds, Non Tender, Soft Genitourinary: Yes: Within Normal Limits Back: Yes: Normal Inspection Musculoskeletal: Yes: full range of Motion, Gait Steady, Pelvis Stable Extremities: Yes: Normal Capillary Refill, Normal Inspection, Normal Range of Motion, Non-Tender Neurological: Yes: 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 II-XII NML intact, Fully Oriented, Alert, Motor Strength 5/5, Normal Mood/Affect, Normal Response Integumentary: Yes: Normal Color, Warm Lymphatic: Yes: Within Normal Limits - Diagnostic (1) Cocaine abuse, episodic use Current Visit: Yes Status: Chronic (2) Alcohol-induced mood disorder Current Visit: Yes Status: Acute (3) Alcohol-induced sleep disorder Current Visit: Yes Status: Acute (4) Alcohol dependence with withdrawal, uncomplicated Current Visit: Yes Status: Chronic (5) Asthma Current Visit: Yes Status: Chronic Qualifiers: Asthma severity: mild Asthma persistence: intermittent Asthma complication type: with status asthmaticus Qualified Code(s): J45.22 - Mild intermittent asthma with status asthmaticus (6) Chronic low back pain Current Visit: Yes Status: Chronic Qualifiers: Back pain laterality: midline Sciatica presence: unspecified whether sciatica present Qualified Code(s): M54.5 - Low back pain; G89.29 - Other chronic pain (7) Hypertension Current Visit: Yes Status: Chronic Qualifiers: Hypertension type: essential hypertension Qualified Code(s): I10 - Essential (primary) hypertension Cleared for Admission BHS - Detox or Rehab S Level of Care: Medically Managed Detox Regimen/Protocol: Librium Claeared for Rehab Admission: No Screened but not Admitted - Documentation of Visit Screened but not Admitted: No Breathalyzer - Breathalyzer Breathalyzer: 0.222 Urine Drug Screen - Test Device Lot number: [id number] Expiration date: 03/12/21 - Control Is test valid?: Yes - Results Drug screen NEGATIVE: No Urine drug screen results: MARIANNE-Cocaine Inpatient Rehab Admission - Rehab Decision to Admit Inpatient rehab admission?: No
[2019-11-01 12:31] VITALS: BMI 37.5
--- NOTE | 2019-11-01 13:20 | HP ---
"CIWA Score Nausea/Vomitin Muscle Tremors: None Anxiety: 2 Agitation: 1-Slight > Activity Paroxysmal Sweats: 1-Minimal Palms Moist Orientation: 0-Oriented Tacttile Disturbances: 0-None Auditory Disturbances: 2-Mild Harshness/Frighten Visual Disturbances: 2-Mild Sensitivity Headache: 3-Moderate CIWA-Ar Total Score: 13 - Admission Criteria OASAS Guidelines: Admission for Medically Managed Detox: Requires at least one of the followin. CIWA greater than 12 2. Seizures within the past 24 hours 3. Delirium tremens within the past 24 hours 4. Hallucinations within the past 24 hours 5. Acute intervention needed for co occurring medical disorder 6. Acute intervention needed for co occurring psychiatric disorder 7. Severe withdrawal that cannot be handled at a lower level of care (continued vomiting, continued diarrhea, abnormal vital signs) requiring intravenous medication and/or fluids 8. Admitting History and Physical - Smoking History Smoking history: Current some day smoker Have you smoked in the past 12 months: No Aproximately how many cigarettes per day: 5 Admission ROS S - HPI Allergies/Adverse Reactions: Allergies Allergy/AdvReac Type Severity Reaction Status Date / Time No Known Drug Allergies Allergy Verified 07/31/19 10:51 seafood Allergy Mild Rash Uncoded 11/01/19 12:25 History of Present Illness: pt here requesting detox from etoh use , reports 12-pk beer/day , latest use today , current RENÉE 0.202 Exam Limitations: Clinical Condition, Intoxication - Ebola screening Have you traveled outside of the country in the last 21 days: No (N) Have you had contact with anyone from an Ebola affected area: No Do you have a fever: No - Review of Systems Constitutional: Loss of Appetite EENT: reports: No Symptoms Reported Respiratory: reports: No Symptoms reported Cardiac: reports: No Symptoms Reported GI: reports: Diarrhea, Nausea, Poor Appetite : reports: No Symptoms Reported Musculoskeletal: reports: See HPI, Back Pain, Other ( This report was requested by: Cassidy Dobbs | Reference #: [id number] Others' Prescriptions Patient Name: Ricky Kumar Date: 1980 Address: [address] [place] [id number] Sex: Male Rx Written Rx Dispensed Drug Quantity Days Supply Prescriber Name 10/14/2019 10/14/2019 oxycodone-acetaminophen 10-325 mg tab 60 30 Whit Polo NP 09/13/2019 09/13/2019 oxycodone-acetaminophen 10-325 mg tab 60 30 JulienneHoward mahmood 09/12/2019 09/12/2019 chlordiazepoxide 25 mg capsule 15 4 Kelvin Pope 08/30/2019 08/30/2019 chlordiazepoxide 25 mg capsule 6 2 Nilton Clayton 08/12/2019 08/15/2019 oxycodone-acetaminophen 10-325 mg tab 60 30 Julienne, Howard Arroyo 07/15/2019 07/15/2019 oxycodone-acetaminophen 10-325 mg tab 60 30 Julienne, Howard Arroyo 06/16/2019 06/16/2019 oxycodone-acetaminophen 10- 325 mg tab 60 30 Julienne, Howard Arroyo 05/11/2019 05/11/2019 oxycodone- acetaminophen 10-325 mg tab 60 30 Whit Polo NP 04/19/2019 04/19/2019 oxycodone-acetaminophen 7.5-325 mg tablet 46 23 JulienneHoward 04/13/2019 04/13/2019 oxycodone-acetaminophen 7.5-325 mg tablet 14 7 Whit Polo [employer] Patient Name: Ricky Milner Date: 1980 Address: [address] [place] [address] Sex: Male Rx Written Rx Dispensed Drug Quantity Days Supply Prescriber Name 04/17/2019 04/28/2019 balance vaporizer equal 1.3mg thc and 1.3mg cbd/inhalation 1 15 Howard Robins 04/17/2019 04/28/2019 forte high thc 9.7mg thc and <0.1mg cbd/capsule 1 15 Howard Robins) Integumentary: reports: Bruising (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 , mosquito bites) Neuro: reports: Headache, Seizure Endocrine: reports: No Symptoms Reported Psychiatric: reports: Orientated x3, Agitated, Anxious Patient History - Patient Medical History Hx Anemia: No Hx Asthma: Yes Hx Chronic Obstructive Pulmonary Disease (COPD): No Hx Cancer: No Hx Cardiac Disorders: No Hx Congestive Heart Failure: No Hx Hypertension: Yes Hx Hypercholesterolemia: No Hx Pacemaker: No HX Cerebrovascular Accident: No Hx Seizures: Yes (r/t Alcohol withdrawals) Hx Dementia: No Hx Diabetes: No Hx Gastrointestinal Disorders: No Hx Liver Disease: No Hx Genitourinary Disorders: No Hx Sexually Transmitted Disorders: No Hx Renal Disease (ESRD): No Hx Thyroid Disease: No Hx Human Immunodeficiency Virus (HIV): No Hx Hepatitis C: No Hx Depression: Yes Hx Suicide Attempt: No Hx Bipolar Disorder: Yes Hx Schizophrenia: No - Patient Surgical History Past Surgical History: Yes Hx Neurologic Surgery: Yes (due to fusion of L2 L3) Hx Cataract Extraction: No Hx Cardiac Surgery: No Hx Lung Surgery: No Hx Breast Surgery: No Hx Breast Biopsy: No Hx Abdominal Surgery: No Hx Appendectomy: No Hx Cholecystectomy: No Hx Genitourinary Surgery: No Hx Section: No Hx Orthopedic Surgery: Yes (left gangliaon cyst removed 1993) Other Surgical History: ganglion cyst, left wrist Anesthesia Reaction: No - PPD History Previous Implant?: Yes Documented Results: Negative w/proof Implanted On Prior [facility] Admission?: Yes Date: 10/21/18 Results: 0 mm - Reproductive History Patient : No - Smoking Cessation Smoking history: Current some day smoker Have you smoked in the past 12 months: No Aproximately how many cigarettes per day: 5 Cigars Per Day: 1 Hx Chewing Tobacco Use: No Initiated information on smoking cessation: No - Substances abused Alcohol Substance route: Oral Frequency: Daily Amount used: 6 cans of (24oz beers) Age of first use: 26 Date of last use: 11/01/19 Cocaine Substance route: Inhalation Frequency: 1-3 times last 30 days Amount used: $20 Age of first use: 37 Date of last use: 10/29/19 Admission Physical Exam S - Vital Signs Vital Signs: Vital Signs - 24 hr 11/01/19 12:26 Temperature 98.2 F Pulse Rate 106 H Respiratory 20 Rate Blood Pressure 148/105 H - Physical General Appearance: Yes: Mild Distress, Intoxicated HEENTM: Yes: EOMI, Hearing grossly Normal, Normocephalic, Normal Voice Respiratory: Yes: Chest Non-Tender, Lungs Clear, Normal Breath Sounds, No Respiratory Distress, No Accessory Muscle Use Neck: Yes: No masses,lesions,Nodules, Trachea in good position Cardiology: Yes: Regular Rhythm, Regular Rate, S1, S2, Tachycardia Abdominal: Yes: Non Tender, Soft, Protuberent Musculoskeletal: Yes: Gait Steady Extremities: Yes: Normal Inspection, Normal Range of Motion, Non-Tender Neurological: Yes: Fully Oriented, Alert, Motor Strength 5/5 Integumentary: Yes: Warm, Petechiae ([place] UE / LE) - Diagnostic (1) Alcohol intoxication Current Visit: Yes Status: Chronic Qualifiers: Complication of substance-induced condition: uncomplicated Qualified Code(s ): F10.920 - Alcohol use, unspecified with intoxication, uncomplicated (2) Alcohol dependence, uncomplicated Current Visit: Yes Status: Chronic (3) Cocaine abuse, episodic use Current Visit: Yes Status: Chronic Breathalyzer - Breathalyzer Breathalyzer: 0.222 Urine Drug Screen - Test Device Lot number: [id number] Expiration date: 05/12/21 - Control Is test valid?: Yes - Results Drug screen NEGATIVE: No Urine drug screen results: MARIANNE-Cocaine, BZO-Benzodiazepines Inpatient Rehab Admission - Rehab Decision to Admit Inpatient rehab admission?: No"
[2019-11-01] MEDS ORDERED: MELATONIN 5 MG TABLETS PO PRN (13:23)
[2019-11-01] MEDS ORDERED: ACETAMINOPHEN 325 MG TABLET (FP) PO PRN (13:23)
[2019-11-01] MEDS ORDERED: MENTHOL/PHENOL 1 EACH UD MM PRN (13:23)
[2019-11-01] MEDS ORDERED: ONDANSETRON *ODT* 4 MG TABLET SL PRN (13:23)
[2019-11-01] MEDS ORDERED: MAGNESIUM CITRATE 300 ML BOTTLE PO PRN (13:23)
[2019-11-01] MEDS ORDERED: BISMUTH SUBSALICYLATE 262 MG/15 ML BTL PO PRN (13:23)
[2019-11-01] MEDS ORDERED: hydrOXYzine PAMOATE 25 MG CAPSULE (FP) PO PRN (13:23)
[2019-11-01] MEDS ORDERED: COLLOIDAL OATMEAL 1 BAR EACH TP PRN (13:24)
[2019-11-01] MEDS ORDERED: chlordiazePOXIDE HCL 25 MG CAPSULE PO PRN (13:25)
[2019-11-01] MEDS ORDERED: NICOTINE POLACRILEX 2 MG GUM BUC PRN (13:30)
[2019-11-01] MEDS ORDERED: chlordiazePOXIDE HCL 25 MG CAPSULE PO ONE (14:35)
[2019-11-01] MEDS: amLODIPine BESYLATE 10 MG TABLET (FP) PO SCH (14:43)
[2019-11-01] MEDS: FAMOTIDINE 10 MG TABLET PO SCH (14:48)
[2019-11-01] MEDS: chlordiazePOXIDE HCL 25 MG CAPSULE PO SCH ×2 (17:15→22:03)
[2019-11-01] MEDS: IBUPROFEN 400 MG TABLET (FP) PO PRN (17:16)
[2019-11-01] MEDS: METHOCARBAMOL 500 MG TABLET PO PRN (17:18)
[2019-11-01] MEDS: ALBUTEROL SO4 HFA INHALER IH PRN (17:37)
[2019-11-01] MEDS ORDERED: METOPROLOL TARTRATE 25 MG TABLET (FP) PO ONE (19:07)
--- NOTE | 2019-11-01 19:08 | PN ---
S Progress Note Note: called by nurse regarding tachycardia Vital Signs - 24 hr 11/01/19 11/01/19 12:26 16:56 Temperature 98.2 F 96.9 F L Pulse Rate 106 H 120 H Respiratory 20 18 Rate Blood Pressure 148/105 H 134/93 P : metoprolol 25 mg x once
[2019-11-01] MEDS: THIAMINE HCL 100 MG TABLET (FP) PO SCH (22:03)
[2019-11-02] MEDS: chlordiazePOXIDE HCL 25 MG CAPSULE PO SCH ×4 (05:38→22:02)
[2019-11-02] MEDS: ALBUTEROL SO4 HFA INHALER IH PRN (05:40)
--- NOTE | 2019-11-02 09:59 | CONSULT ---
[facility] Psychiatric Consult - Data Date of interview: 11/02/19 Admission source: [facility] Identifying data: Patient is a 39 year old single male, father of two, employed "on and off", and currently domiciled. This is one of multiple admissions for patient. Patient admitted to for alcohol and cocaine dependence. Substance Abuse History: History of alcohol and cocaine use. Medical History: Significant for bronchial asthma, hypertension, low back pain, history of alcohol related seizure, neurosurgery for lumbar fusion L2L3 and removal of ganglion cyst left wrist. Psychiatric History: Patient denies h/o psychiatric hospitalization and suicide attempt. Mr. Kumar reports history of outpatient psychatric care in [place], [place] by Dr. frye. He was prescribed prozac 60mg + Seroquel 200mg. Diagnosis of MDD. Mr. Kumar has not had outpatient psychiatric care in approximately one year. He continues to take medications intermittently as he has additional refills at home. At present patient reports feeling sad and is experiencing difficulty sleeping. Physical/Sexual Abuse/Trauma History: denies. Mental Status Exam - Mental Status Exam Alert and Oriented to: Time, Place, Person Cognitive Function: Good Patient Appearance: Well Groomed Mood: Sad, Withdrawn Affect: Mood Congruent Patient Behavior: Appropriate, Cooperative Speech Pattern: Appropriate Voice Loudness: Normal Thought Process: Goal Oriented Thought Disorder: Not Present Hallucinations: Denies Suicidal Ideation: Denies Homicidal Ideation: Denies Insight/Judgement: Poor Sleep: Poorly Appetite: Poor Muscle strength/Tone: Normal Gait/Station: Normal Psychiatric Findings - Problem List ([place] 1, 2,3) (1) Alcohol use disorder Current Visit: Yes Status: Acute (2) Cocaine dependence Current Visit: Yes Status: Chronic Qualifiers: Substance use status: uncomplicated Qualified Code(s): F14.20 - Cocaine dependence, uncomplicated (3) Substance induced mood disorder Current Visit: Yes Status: Acute (4) Substance-induced sleep disorder Current Visit: Yes Status: Acute (5) MDD (major depressive disorder) Current Visit: Yes Status: Chronic - Initial Treatment Plan Initial Treatment Plan: Psychoeducation provided. Detoxification in progress. Will order Prozac 20mg daily + Belsomra 10mg HS PRN. Benefits and side effects discussed. Verbal consent given.
[2019-11-02] MEDS: PRENATAL VITAMINS W/ FOLIC ACID TABLET (FP) PO SCH (10:10)
[2019-11-02] MEDS: amLODIPine BESYLATE 10 MG TABLET (FP) PO SCH (10:10)
[2019-11-02] MEDS: FAMOTIDINE 10 MG TABLET PO SCH (10:11)
[2019-11-02] MEDS: METHOCARBAMOL 500 MG TABLET PO PRN ×2 (10:12→17:38)
[2019-11-02] MEDS: IBUPROFEN 400 MG TABLET (FP) PO PRN ×2 (10:12→17:39)
--- NOTE | 2019-11-02 10:38 | PN ---
S CIWA - CIWA Score Nausea/Vomitin-Mild Nausea/No Vomiting Muscle Tremors: 1-None Visible, but [place] Anxiety: 3 Agitation: 1-Slight > Activity Paroxysmal Sweats: 2 Orientation: 0-Oriented Tacttile Disturbances: 0-None Auditory Disturbances: 1-Very Mild Visual Disturbances: 1-Very Mild Sensitivity Headache: 2-Mild CIWA-Ar Total Score: 12 BHS Progress Note (SOAP) Subjective: [age] years old male admitted on 11/01/19 for alcohol withdrawal sx management treating with librium detox regiment reports last admission was 09/2019 and refuses admission lab discontinue cbc and camp states that long history of back pain post surgical since 2017 treated at pain management clinic in [facility] opioid based pain medication discussed the risks of opioid tolerance encourage the patient to discuss options for back pain with pain management clinic physician for alternatives Objective: 11/02/19 10:41 Vital Signs Temperature 96.3 F L 11/02/19 09:20 Pulse Rate 85 11/02/19 09:20 Respiratory Rate 11/02/19 09:20 Blood Pressure 123/89 11/02/19 09:20 O2 Sat by Pulse Oximetry (%) lab see 09/201911/02/19 10:41 report no need for repeat admission lab Assessment: 11/02/19 10:41 alcohol withdrawal Plan: librium regiment
[2019-11-02] MEDS ORDERED: FLUoxetine HCL 20 MG CAPSULE PO ONE (10:50)
[2019-11-02] MEDS: hydrOXYzine PAMOATE 50 MG CAPSULE (FP) PO PRN (11:36)
[2019-11-02] MEDS: THIAMINE HCL 100 MG TABLET (FP) PO SCH (22:03)
[2019-11-02] MEDS: SUVOREXANT 10 MG TABLET PO PRN (22:04)
[2019-11-02] MEDS: ACETAMINOPHEN 325 MG TABLET (FP) PO PRN (22:06)
[2019-11-03] MEDS: chlordiazePOXIDE HCL 25 MG CAPSULE PO SCH ×4 (05:25→22:08)
[2019-11-03] MEDS: hydrOXYzine PAMOATE 50 MG CAPSULE (FP) PO PRN ×2 (09:06→19:14)
[2019-11-03] MEDS: FLUoxetine HCL 20 MG CAPSULE PO SCH (10:15)
[2019-11-03] MEDS: amLODIPine BESYLATE 10 MG TABLET (FP) PO SCH (10:15)
[2019-11-03] MEDS: PRENATAL VITAMINS W/ FOLIC ACID TABLET (FP) PO SCH (10:15)
[2019-11-03] MEDS: METHOCARBAMOL 500 MG TABLET PO PRN ×2 (10:17→17:20)
[2019-11-03] MEDS: ACETAMINOPHEN 325 MG TABLET (FP) PO PRN ×2 (10:18→22:11)
[2019-11-03] MEDS: FAMOTIDINE 10 MG TABLET PO SCH (10:20)
--- NOTE | 2019-11-03 10:37 | PN ---
S CIWA - CIWA Score Nausea/Vomitin-No Nausea/No Vomiting Muscle Tremors: 2 Anxiety: 2 Agitation: 0-Normal Activity Paroxysmal Sweats: 2 Orientation: 0-Oriented Tacttile Disturbances: 0-None Auditory Disturbances: 0-None Visual Disturbances: 0-None Headache: 1-Very Mild CIWA-Ar Total Score: 7 BHS Progress Note (SOAP) Subjective: 39 years old male admitted on 11/01/19 for alcohol withdrawal sx management treating with librium detox regimen feeling better today consider to be discharged one day early to begin chemical dependent recovery journey less tremor slept through the night Objective: 11/03/19 10:36 Vital Signs Temperature 96.4 F L 11/03/19 09:20 Pulse Rate 84 11/03/19 09:20 Respiratory Rate 18 11/03/19 09:20 Blood Pressure 136/96 11/03/19 09:20 O2 Sat by Pulse Oximetry (%) 11/03/19 10:36 lab see 09/2019 report Assessment: 11/03/19 10:36 alcohol withdrawal Plan: librium regiment
[2019-11-03] MEDS: IBUPROFEN 400 MG TABLET (FP) PO PRN (17:20)
[2019-11-03] MEDS: ALBUTEROL SO4 HFA INHALER IH PRN (17:22)
[2019-11-03] MEDS: THIAMINE HCL 100 MG TABLET (FP) PO SCH (22:08)
[2019-11-03] MEDS: SUVOREXANT 10 MG TABLET PO PRN (22:09)
[2019-11-04] MEDS ORDERED: chlordiazePOXIDE HCL 10 MG CAPSULE PO PRN
[2019-11-04] MEDS ORDERED: chlordiazePOXIDE HCL 10 MG CAPSULE PO SCH (05:00)
[2019-11-04] MEDS: ACETAMINOPHEN 325 MG TABLET (FP) PO PRN (06:50)
[2019-11-04 07:07] VITALS: PULSE 87
[2019-11-04 09:16] VITALS: BP 131/85; TEMP 96.3
[2019-11-04] MEDS: amLODIPine BESYLATE 10 MG TABLET (FP) PO SCH (09:28)
[2019-11-04] MEDS: PRENATAL VITAMINS W/ FOLIC ACID TABLET (FP) PO SCH (09:28)
[2019-11-04] MEDS: FAMOTIDINE 10 MG TABLET PO SCH (09:28)
[2019-11-04] MEDS: FLUoxetine HCL 20 MG CAPSULE PO SCH (09:28)
--- NOTE | 2019-11-04 11:20 | DS ---
[facility] Detox Discharge Summary Admission Date: 11/01/19 Discharge Date: 11/04/19 - History Present History: Alcohol Dependence Additional Comments: 39 years old male admitted on 11/01/19 for alcohol withdrawal sx management treated with librium detox regimen prefers to leave detox unit today earlier than estimated discharge date of 11/05/19 patient is alert oriented x 3 patient had called taxi to transport from detox facility to home case discussed with the nurse routine discharge is appropriated respiratory clear lungs bilaterally on auscultation extremities full range of motion skin warm and dry - Physical Exam Results Vital Signs: Vital Signs Temperature 96.3 F L 11/04/19 09:15 Pulse Rate 87 11/04/19 09:15 Respiratory Rate 18 11/04/19 09:15 Blood Pressure 131/85 11/04/19 09:15 O2 Sat by Pulse Oximetry (%) Pertinent Admission Physical Exam Findings: alcohol withdrawal lab see 09/2019 report - Treatment Hospital Course: Detox Protocol Followed, Detoxed Safely, Responded well, Discharged Condition Good, Rehab Referral Accepted Patient [facility] - Medication Discharge Medications: Ambulatory Orders Fluoxetine HCl [Prozac] 40 mg PO DAILY 10/20/18 Albuterol Sulfate Inhaler - [Ventolin HFA Inhaler -] 2 puff IH Q4H PRN 30 Days # 1 inhaler 10/24/18 Amlodipine Besylate [Norvasc -] 10 mg PO DAILY 07/31/19 - Diagnosis (1) Alcohol-induced mood disorder Status: Acute (2) Substance induced mood disorder Status: Suspected (3) Alcohol dependence with withdrawal, uncomplicated Status: Acute (4) Asthma Status: Chronic Qualifiers: Asthma severity: mild Asthma persistence: intermittent Asthma complication type: with status asthmaticus Qualified Code(s): J45.22 - Mild intermittent asthma with status asthmaticus (5) Hypertension Status: Chronic Qualifiers: Hypertension type: essential hypertension Qualified Code(s): I10 - Essential (primary) hypertension - AMA Did Patient Leave Against Medical Advice: No CIWA Score - CIWA Score Nausea/Vomitin-No Nausea/No Vomiting Muscle Tremors: 1-None Visible, but [place] Anxiety: 1-Mildly Anxious Agitation: 1-Slight > Activity Paroxysmal Sweats: 1-Minimal Palms Moist Orientation: 0-Oriented Tacttile Disturbances: 0-None Auditory Disturbances: 0-None Visual Disturbances: 0-None Headache: 0-None Present CIWA-Ar Total Score: 4
[2019-11-05] MEDS ORDERED: chlordiazePOXIDE HCL 10 MG CAPSULE PO ONE (05:00)
== END 2019-11-04 10:46 | disposition home or self-care (01) | DRG 774 ==
LOC: YASAS 11:50 → Y3N 13:58
PROVIDERS: ADMIT Allergy & Immunology; ATTEND Allergy & Immunology
PROC: HZ2ZZZZ Detoxification Services for Substance Abuse Treatment (ICD-10-PCS; principal; 2019-11-01)
DX: F10.230 Alcohol dependence with withdrawal, uncomplicated (principal); F14.10 Cocaine abuse, uncomplicated; F10.24 Alcohol dependence with alcohol-induced mood disorder; F10.282 Alcohol dependence with alcohol-induced sleep disorder; F19.24 Other psychoactive substance dependence with psychoactive substance-induced mood disorder; F19.282 Other psychoactive substance dependence with psychoactive substance-induced sleep disorder; F33.9 Major depressive disorder, recurrent, unspecified; I10 Essential (primary) hypertension; J45.22 Mild intermittent asthma with status asthmaticus; M54.5 Low back pain; G89.29 Other chronic pain; Z98.1 Arthrodesis status; Z86.69 Personal history of other diseases of the nervous system and sense organs; Z91.013 Allergy to seafood; Z91.018 Allergy to other foods
CPT/HCPCS: Q0162

== ENCOUNTER 2020-04-07 10:32 | Inpatient (IN) | payer OTHER ==
--- NOTE | 2020-04-07 11:10 | BHS.RME ---
Substance Use & Tx History - Substance Use History Alcohol Substance amount: one pint Frequency of use: Daily Substance route: Oral Date of Last Use: 04/07/20 (First use age 23y, Seizure 5 y ago. NO blackouts. 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) Cocaine- Powder Substance amount: $20 Frequency of use: Once a month Substance route: Inhalation (ex: sniffing or snorting) Date of Last Use: 03/08/20 (First use 2 years ago) Nicotine Substance amount: 1-2 Frequency of use: Less than 3 times per week Substance route: Smoking Date of Last Use: 04/07/20 - Last Treatment Date of last treatment: 11/01 to 11/04/19 Treatment type: Substance Use Disorder ([facility]) Where was last treatment: Detox Physical/Psych/Mental Status - Behavior General Behavior: Increased activity (restlessness, agitation) Eye Contact: Normal - Cooperativeness Cooperativeness: Cooperative - Thinking Thought Processes: Tight Thought content: Future oriented CIWA Nausea/Vomitin-Mild Nausea/No Vomiting Muscle Tremors: 3 Anxiety: 2 Agitation: 1-Slight > Activity Paroxysmal Sweats: 3 Orientation: 0-Oriented Tacttile Disturbances: 1-Very Mild Itch/Numbness Auditory Disturbances: 1-Very Mild Visual Disturbances: 1-Very Mild Sensitivity Headache: 0-None Present CIWA-Ar Total Score: 13
--- NOTE | 2020-04-07 13:23 | HP ---
CIWA Score Nausea/Vomitin-Mild Nausea/No Vomiting Muscle Tremors: 3 Anxiety: 2 Agitation: 1-Slight > Activity Paroxysmal Sweats: 3 Orientation: 0-Oriented Tacttile Disturbances: 1-Very Mild Itch/Numbness Auditory Disturbances: 1-Very Mild Visual Disturbances: 1-Very Mild Sensitivity Headache: 0-None Present CIWA-Ar Total Score: 13 - Admission Criteria OASAS Guidelines: Admission for Medically Managed Detox: Requires at least one of the followin. CIWA greater than 12 2. Seizures within the past 24 hours 3. Delirium tremens within the past 24 hours 4. Hallucinations within the past 24 hours 5. Acute intervention needed for co occurring medical disorder 6. Acute intervention needed for co occurring psychiatric disorder 7. Severe withdrawal that cannot be handled at a lower level of care (continued vomiting, continued diarrhea, abnormal vital signs) requiring intravenous medication and/or fluids 8. 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: Seizure Cardiovascular: Yes: HTN Pulmonary: Yes: Asthma Infectious Disease: Yes: HIV Psych: Yes: Anxiety, Depression, Other (insomnia) - Past Surgical History Additional Past Surgical History: lumbar fusion 2015 [facility] – [place] - Smoking History Smoking history: Current some day smoker Have you smoked in the past 12 months: No Aproximately how many cigarettes per day: 5 - Alcohol/Substance Use Hx Alcohol Use: Yes History of Substance Use: reports: Cocaine - Social History Usual Living Arrangement: Yes: With Spouse Do you think of yourself as: Straight/Heterosexual ADL: Support Services Occupation: unemployed History of Recent Travel: No Other Social History: unemployed ,no legal issue Admission [facility] Chief Complaint: i need help to stop drinking alcohol Allergies/Adverse Reactions: Allergies Allergy/AdvReac Type Severity Reaction Status Date / Time No Known Drug Allergies Allergy Verified 04/07/20 14:08 lactose AdvReac Verified 04/07/20 14:08 seafood Allergy Mild Rash Uncoded 04/07/20 14:08 History of Present Illness: this 39 years old ma with alcohol dependence,cocaine abused,withdrawal symptom,seen in [place] 04/06/20 receiving librium last night, alcohol related seizure last 5 years ago denied syncope 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 new focus asthma unemployed,no legal issue Exam Limitations: No Limitations - Ebola screening Have you traveled outside of the country in the last 21 days: No Have you had contact with anyone from an Ebola affected area: No Have you been sick,other than usual withdrawal symptoms: No Do you have a fever: No - Review of Systems Constitutional: Loss of Appetite, Malaise, Night Sweats, Changes in sleep, Weakness EENT: reports: Nose Congestion Respiratory: reports: No Symptoms reported, Other (asthma) Cardiac: reports: No Symptoms Reported GI: reports: Nausea, Poor Appetite, Vomiting, Abdominal cramping : reports: No Symptoms Reported Musculoskeletal: reports: Back Pain, Muscle Pain Integumentary: reports: Dryness Endocrine: reports: No Symptoms Reported Hematology: reports: No Symptoms Reported Psychiatric: reports: No Sypmtoms Reported, Judgement Intact, Mood/Affect Appropiate, Anxious, Depressed Other Systems: Reviewed and Negative Patient History - Patient Medical History Hx Anemia: No Hx Asthma: Yes (n albuterol inhaler) Hx Chronic Obstructive Pulmonary Disease (COPD): No Hx Cancer: No Hx Cardiac Disorders: No Hx Congestive Heart Failure: No Hx Hypertension: Yes (on med) Hx Hypercholesterolemia: No Hx Pacemaker: No HX Cerebrovascular Accident: No Hx Seizures: Yes (r/t Alcohol withdrawals last 5 years ago) Hx Dementia: No Hx Diabetes: No Hx Gastrointestinal Disorders: No Hx Liver Disease: No Hx Genitourinary Disorders: No Hx Sexually Transmitted Disorders: No Hx Renal Disease (ESRD): No Hx Thyroid Disease: No Hx Human Immunodeficiency Virus (HIV): No (last 12/2019 nrgaive) Hx Hepatitis C: No Hx Depression: Yes Hx Suicide Attempt: No Hx Bipolar Disorder: Yes Hx Schizophrenia: No Other Medical History: no suicidal,no homcidal - Patient Surgical History Past Surgical History: Yes Hx Neurologic Surgery: Yes (due to fusion of L2 L3) Hx Cataract Extraction: No Hx Cardiac Surgery: No Hx Lung Surgery: No Hx Breast Surgery: No Hx Breast Biopsy: No Hx Abdominal Surgery: No Hx Appendectomy: No Hx Cholecystectomy: No Hx Genitourinary Surgery: No Hx Section: No Hx Orthopedic Surgery: Yes (left gangliaon cyst removed 1994 wrist) Other Surgical History: ganglion cyst, left wrist Anesthesia Reaction: No - PPD History Previous Implant?: Yes Documented Results: Negative w/o proof Implanted On Prior R Admission?: Yes Date: 10/21/18 Results: 0 mm PPD to be Administered?: Yes - Smoking Cessation Smoking history: Current some day smoker Have you smoked in the past 12 months: No Aproximately how many cigarettes per day: 5 Cigars Per Day: 1 Hx Chewing Tobacco Use: No Initiated information on smoking cessation: Yes 'Breaking Loose' booklet given: 04/07/20 - Substance & Tx. History Hx Alcohol Use: Yes Hx Substance Use: Yes Substance Use Type: Alcohol, Cocaine Hx Substance Use Treatment: Yes ([facility] 11/01/19 to ) - Substances abused Alcohol Substance route: Oral Frequency: Daily Amount used: 1/2pint of liquor/12 of 12 packs of 24 ozs of beeer Age of first use: 18 Date of last use: 04/06/20 Cocaine Substance route: Inhalation Frequency: 1-3 times last 30 days Amount used: 20$ Age of first use: 36 Date of last use: 04/05/20 Admission Physical Exam [facility] - Vital Signs Vital Signs: Vital Signs Temperature 97.3 F L 04/07/20 14:21 Pulse Rate 105 H 04/07/20 14:21 Respiratory Rate 16 04/07/20 14:21 Blood Pressure 137/85 04/07/20 14:21 O2 Sat by Pulse Oximetry (%) - Physical General Appearance: Yes: Moderate Distress, Tremorous, Irritable, Sweating, Anxious HEENTM: Yes: Normal ENT Inspection, JENNY, Pharynx Normal Respiratory: Yes: Lungs Clear, Normal Breath Sounds, No Respiratory Distress Neck: Yes: Within Normal Limits, Supple, Trachea in good position Breast: Yes: Within Normal Limits Cardiology: Yes: Within Normal Limits, Regular Rhythm, Regular Rate, S1, S2 Abdominal: Yes: Within Normal Limits, Normal Bowel Sounds, Non Tender, Flat, Soft Genitourinary: Yes: Within Normal Limits Back: Yes: Muscle Spasm Musculoskeletal: Yes: Back pain, Muscle Pain, Other (scar in the back) Extremities: Yes: Tremors, Other (varicose vein) 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 NML intact, Fully Oriented, Alert, Motor Strength 5/5 Integumentary: Yes: Dry Lymphatic: Yes: Within Normal Limits - Diagnostic (1) Alcohol dependence with withdrawal, uncomplicated Current Visit: No Status: Acute (2) Cocaine abuse Current Visit: Yes Status: Acute (3) Alcohol related seizure Current Visit: Yes Status: Acute (4) Nicotine abuse Current Visit: Yes Status: Acute (5) Asthma Current Visit: Yes Status: Acute (6) Bipolar disorder Current Visit: Yes Status: Acute (7) Low back pain Current Visit: Yes Status: Acute (8) History of back surgery Current Visit: Yes Status: Acute Cleared for Admission [facility] - Detox or Rehab [facility] Level of Care: Medically Managed Detox Regimen/Protocol: Valium Breathalyzer - Breathalyzer Breathalyzer: 0.086 Urine Drug Screen - Test Device Lot number: [id number] Expiration date: 06/12/21 - Control Is test valid?: Yes - Results Drug screen NEGATIVE: No Urine drug screen results: MARIANNE-Cocaine, BZO-Benzodiazepines, BUP-Suboxone Inpatient Rehab Admission - Rehab Decision to Admit Inpatient rehab admission?: No
[2020-04-07] MEDS ORDERED: ONDANSETRON *ODT* 4 MG TABLET SL ONE (13:45)
[2020-04-07] MEDS ORDERED: METHOCARBAMOL 500 MG TABLET PO PRN (13:45)
[2020-04-07] MEDS ORDERED: IBUPROFEN 400 MG TABLET (FP) PO PRN (13:45)
[2020-04-07] MEDS ORDERED: BISMUTH SUBSALICYLATE 262 MG/15 ML BTL PO PRN (13:45)
[2020-04-07] MEDS ORDERED: MAGNESIUM CITRATE 300 ML BOTTLE PO PRN (13:45)
[2020-04-07] MEDS ORDERED: MENTHOL/PHENOL 1 EACH UD MM PRN (13:45)
[2020-04-07] MEDS ORDERED: MAG HYDROX/AL HYDROX/SIMETH 30 ML UNIT-DOSE CUP PO PRN (13:45)
[2020-04-07] MEDS ORDERED: NICOTINE POLACRILEX 2 MG GUM BUC PRN (13:45)
[2020-04-07] MEDS ORDERED: ACETAMINOPHEN 325 MG TABLET (FP) PO PRN ×2 (13:45)
[2020-04-07] MEDS ORDERED: MAGNESIUM HYDROX 2400MG/30ML ORAL SUSPENSION 30 ML CUP PO PRN (13:45)
[2020-04-07] MEDS ORDERED: ONDANSETRON *ODT* 4 MG TABLET SL PRN (13:50)
[2020-04-07] MEDS ORDERED: hydrOXYzine PAMOATE 25 MG CAPSULE (FP) PO SCH (14:00)
[2020-04-07] MEDS ORDERED: ALBUTEROL SO4 HFA INHALER IH PRN (14:10)
[2020-04-07 14:23] VITALS: BMI 37.8
[2020-04-07] MEDS: diazePAM 5 MG TABLET PO SCH ×2 (14:57→22:00)
--- NOTE | 2020-04-07 16:42 | CONSULT ---
[facility] Psychiatric Consult - Data Date of interview: 04/07/20 Admission source: [facility] Identifying data: Patient is a 39 year old single male, father of two, domiciled, and currently employed. This is one of multiple admissions for patient. Patient admitted to for alcohol and cocaine dependence. Substance Abuse History: Smoking Cessation. Smoking history: Current some day smoker. Have you smoked in the past 12 months: No. Aproximately how many cigarettes per day: 5. Cigars Per Day: 1. Hx Chewing Tobacco Use: No. Initiated information on smoking cessation: Yes. 'Breaking Loose' booklet given: 04/07/20. - Substance & Tx. History. Hx Alcohol Use: Yes. Hx Substance Use: Yes. Substance Use Type: Alcohol, Cocaine. Hx Substance Use Treatment: Yes ([facility] 11/01/19 to ). - Substances abused. Alcohol. Substance route: Oral. Frequency: Daily. Amount used: 1/2pint of liquor/12 of 12 packs of 24 ozs of beeer. Age of first use: 18. Date of last use: 04/06/20. Cocaine. Substance route: Inhalation. Frequency: 1-3 times last 30 days. Amount used: 20$. Age of first use: 36. Date of last use: 04/05/20 Medical History: Significant for bronchial asthma, hypertension, low back pain, history of alcohol related seizure, neurosurgery for lumbar fusion L2L3 and removal of ganglion cyst left wrist. Psychiatric History: Patient denies h/o psychiatric hospitalization and suicide attempt. Mr. Kumar reports history of outpatient psychatric care in [place], [place] by Dr. frye. He was prescribed prozac 60mg + Seroquel 200mg. Diagnosis of MDD. Mr. Kumar is now being seen by publications writer at the [facility] and is prescribed prozac 40mg + Trazodone 50mg HS. Patient reports relapsing three weeks ago after his girlfriend had a miscarriage. At present patient reports feeling sad and is experiencing difficulty sleeping. Physical/Sexual Abuse/Trauma History: denies. Mental Status Exam - Mental Status Exam Alert and Oriented to: Time, Place, Person Cognitive Function: Good Patient Appearance: Well Groomed Mood: Withdrawn Affect: Mood Congruent Patient Behavior: Appropriate, Cooperative Speech Pattern: Appropriate Voice Loudness: Normal Thought Process: Intact, Goal Oriented Thought Disorder: Not Present Hallucinations: Denies Suicidal Ideation: Denies Homicidal Ideation: Denies Insight/Judgement: Poor Sleep: Poorly Appetite: Fair Muscle strength/Tone: Normal Gait/Station: Normal Psychiatric Findings - Problem List ([place] 1, 2,3) (1) Alcohol dependence with withdrawal, uncomplicated Status: Acute (2) Alcohol use disorder Status: Acute (3) Substance-induced sleep disorder Status: Acute (4) MDD (major depressive disorder) Status: Chronic (5) Substance induced mood disorder Status: Acute (6) Cocaine dependence Status: Acute - Initial Treatment Plan Initial Treatment Plan: Psychoeducation provided. Detoxification in progress. Will order Prozac 40mg daily + Trazodone 50mg HS. Benefits and side effects discussed. Verbal consent given.
[2020-04-07 17:00] LABS: HEMATOCRIT 43.3 % (35.4-49); HEMOGLOBIN 14.2 GM/dL (11.7-16.9); MCH 30.1 pg (25.7-33.7); MCHC 32.7 g/dl (32.0-35.9); MEAN CELL VOLUME 91.8 fl (80-96); MEAN PLT VOLUME 9.3 fl (7.5-11.1); PLATELET COUNT 129 K/MM3 (134-434); RBC 4.71 M/mm3 (4.00-5.60); RDW 14.5 % (11.9-15.9); WHITE BLOOD COUNT 4.3 K/mm3 (4.0-10.0)
[2020-04-07 17:17] LABS: ALBUMIN 4.1 g/dl (3.4-5.0); BILIRUBIN,TOTAL 1.1 mg/dL (0.2-1); BLOOD UREA NITROGEN 6.3 mg/dL (7-18); CALCIUM 9.2 mg/dL (8.5-10.1); CREATININE 0.8 mg/dL (0.55-1.3); POTASSIUM 3.1 mmol/L (3.5-5.1); TOT PROT 7.4 g/dl (6.4-8.2)
[2020-04-07] MEDS: hydrOXYzine PAMOATE 25 MG CAPSULE (FP) PO PRN (19:24)
[2020-04-07] MEDS: diazePAM 5 MG TABLET PO PRN (19:24)
[2020-04-07] MEDS: THIAMINE HCL 100 MG TABLET (FP) PO SCH (22:00)
[2020-04-07] MEDS: traZODone HCL 50 MG TABLET (FP) PO SCH (22:00)
[2020-04-07] MEDS: MELATONIN 5 MG TABLETS PO SCH (22:01)
[2020-04-07] MEDS ORDERED: POTASSIUM CHLORIDE TABS 20 MEQ TABLET.ER (FP) PO ONE (23:11)
[2020-04-08] MEDS: diazePAM 5 MG TABLET PO SCH ×3 (05:23→21:23)
[2020-04-08] MEDS: amLODIPine BESYLATE 10 MG TABLET (FP) PO SCH (10:13)
[2020-04-08] MEDS: PRENATAL VITAMINS W/ FOLIC ACID TABLET (FP) PO SCH (10:13)
[2020-04-08] MEDS: FLUoxetine HCL 20 MG CAPSULE PO SCH (10:13)
[2020-04-08] MEDS: NICOTINE 7 MG/24 HOURS TOPICAL PATCH TD SCH (10:13)
[2020-04-08] MEDS: diazePAM 5 MG TABLET PO PRN ×2 (10:15→17:35)
[2020-04-08] MEDS: POTASSIUM CHLORIDE TABS 20 MEQ TABLET.ER (FP) PO SCH ×2 (12:08→17:32)
[2020-04-08 13:43] LABS: PH,URINE 6.5 (5.0-8.0); URINE APPEARANCE Clear; URINE BILIRUBIN Negative (NEGATIVE); URINE COLOR Yellow; URINE GLUCOSE (UA) Negative (NEGATIVE); URINE KETONE Negative (NEGATIVE); URINE LEUK ESTERASE Negative (NEGATIVE); URINE NITRITE Negative (NEGATIVE); URINE PROTEIN Negative (NEGATIVE); URINE UROBILINOGEN 0.2 mg/dL (0.2-1.0)
--- NOTE | 2020-04-08 16:04 | PN ---
S CIWA - CIWA Score Nausea/Vomitin Muscle Tremors: None Anxiety: 3 Agitation: 2 Paroxysmal Sweats: 3 Orientation: 0-Oriented Tacttile Disturbances: 2-Mild Itch/Numbness/Burn Auditory Disturbances: 0-None Visual Disturbances: 0-None Headache: 0-None Present CIWA-Ar Total Score: 13 S Progress Note (SOAP) Subjective: Nausea, Anxious, Sweating. Objective: Patient A & O X 3, Observed Ambulating on Detox Unit Unassisted. In No Acute Distress. 04/08/20 16:00 Vital Signs Temperature 97.5 F L 04/08/20 12:38 Pulse Rate 87 04/08/20 12:38 Respiratory Rate 20 04/08/20 12:38 Blood Pressure 136/84 04/08/20 12:38 O2 Sat by Pulse Oximetry (%) 100 04/08/20 12:38 Laboratory Tests 04/07/20 04/07/20 04/07/20 14:30 14:30 14:30 WBC 4.3 RBC 4.71 Hgb 14.2 Hct 43.3 D MCV 91.8 MCH 30.1 MCHC 32.7 RDW 14.5 D Plt Count 129 L D MPV 9.3 D Sodium 141 Potassium 3.1 L Chloride 104 Carbon Dioxide 25 Anion Gap 12 BUN 6.3 L Creatinine 0.8 Est GFR (CKD-EPI)AfAm 128.60 Est GFR (CKD-EPI)NonAf 110.96 Random Glucose 91 Calcium 9.2 Total Bilirubin 1.1 H AST 230 H ALT 239 H Alkaline Phosphatase 114 Total Protein 7.4 Albumin 4.1 Urine Color Urine Appearance Urine pH Ur Specific [place] Urine Protein Urine Glucose (UA) Urine Ketones Urine Blood Urine Nitrite Urine Bilirubin Urine Urobilinogen Ur Leukocyte Esterase Syphilis Serology Non-reactive Hep C Ab Diagnostic 04/07/20 04/08/20 14:30 10:10 WBC RBC Hgb Hct MCV MCH MCHC RDW Plt Count MPV Sodium Potassium Chloride Carbon Dioxide Anion Gap BUN Creatinine Est GFR (CKD-EPI)AfAm Est GFR (CKD-EPI)NonAf Random Glucose Calcium Total Bilirubin AST ALT Alkaline Phosphatase Total Protein Albumin Urine Color Yellow Urine Appearance Clear Urine pH 6.5 Ur Specific [place] 1.025 Urine Protein Negative Urine Glucose (UA) Negative Urine Ketones Negative Urine Blood Negative Urine Nitrite Negative Urine Bilirubin Negative Urine Urobilinogen 0.2 Ur Leukocyte Esterase Negative Syphilis Serology Hep C Ab Diagnostic 0.1 Lab Results Noted. Assessment: 04/08/20 16:00 WITHDRAWAL SYMPTOMS THROMBOCYTOPNIA HYPOKALEMIA ELEVATED AST AND ALT LEVELS. 04/08/20 16:01 Plan: Continue Detox. Patient reports discomfort when urinating for last couple of days. Result of Detox Admission UA noted (no abnormalities noted). Patient advised to increase daily oral water intake over next few days and continue to monitor. K-Dur order for treatment of low K level noted on Detox admission laboratory assessment. Will re-check K-level tomorrow to assess for effect. Patient advised to have repeat testing done for elevated AST and ALT levels noted on Detox admission laboratory assess. However, Patient declined this, noting that he will consult his Primary Care Medical Provider after discharge from Detox.
[2020-04-08] MEDS: hydrOXYzine PAMOATE 25 MG CAPSULE (FP) PO PRN (16:18)
[2020-04-08] MEDS: THIAMINE HCL 100 MG TABLET (FP) PO SCH (21:23)
[2020-04-08] MEDS: MELATONIN 5 MG TABLETS PO SCH (21:23)
[2020-04-08] MEDS: traZODone HCL 50 MG TABLET (FP) PO SCH (21:23)
[2020-04-09] MEDS: diazePAM 5 MG TABLET PO SCH ×2 (05:33→17:40)
[2020-04-09] MEDS: diazePAM 5 MG TABLET PO PRN ×3 (08:57→21:06)
[2020-04-09] MEDS: amLODIPine BESYLATE 10 MG TABLET (FP) PO SCH (10:48)
[2020-04-09] MEDS: PRENATAL VITAMINS W/ FOLIC ACID TABLET (FP) PO SCH (10:48)
[2020-04-09] MEDS: FLUoxetine HCL 20 MG CAPSULE PO SCH (10:48)
[2020-04-09] MEDS: NICOTINE 7 MG/24 HOURS TOPICAL PATCH TD SCH (10:49)
[2020-04-09] MEDS: hydrOXYzine PAMOATE 25 MG CAPSULE (FP) PO PRN (10:51)
--- NOTE | 2020-04-09 14:39 | PN ---
S CIWA - CIWA Score Nausea/Vomitin-Mild Nausea/No Vomiting Muscle Tremors: None Anxiety: 2 Agitation: 2 Paroxysmal Sweats: 2 Orientation: 0-Oriented Tacttile Disturbances: 0-None Auditory Disturbances: 0-None Visual Disturbances: 0-None Headache: 0-None Present CIWA-Ar Total Score: 7 S Progress Note (SOAP) Subjective: Sweating, interrupted sleep. Patient requesting discharge at 7am tomorrow. Objective: 04/09/20 14:35 Last Vital Signs Temp Pulse Resp BP Pulse Ox 98.1 F 85 19 138/89 98 04/09/20 12:20 04/09/20 12:20 04/09/20 12:20 04/09/20 12:20 04/09/20 12:20 Elevated b/p noted, has HTN, on medication Laboratory Tests 04/07/20 04/07/20 04/07/20 14:30 14:30 14:30 WBC RBC Hgb Hct MCV MCH MCHC RDW Plt Count MPV Sodium 141 Potassium 3.1 L Chloride 104 Carbon Dioxide 25 Anion Gap 12 BUN 6.3 L Creatinine 0.8 Est GFR (CKD-EPI)AfAm 128.60 Est GFR (CKD-EPI)NonAf 110.96 Random Glucose 91 Calcium 9.2 Total Bilirubin 1.1 H AST 230 H ALT 239 H Alkaline Phosphatase 114 Total Protein 7.4 Albumin 4.1 Urine Color Urine Appearance Urine pH Ur Specific [place] Urine Protein Urine Glucose (UA) Urine Ketones Urine Blood Urine Nitrite Urine Bilirubin Urine Urobilinogen Ur Leukocyte Esterase Syphilis Serology Non-reactive COVID-19 (JOSÉ MIGUEL) Not detected Hep C Ab Diagnostic 04/07/20 04/07/20 04/08/20 14:30 14:30 10:10 WBC 4.3 RBC 4.71 Hgb 14.2 Hct 43.3 D MCV 91.8 MCH 30.1 MCHC 32.7 RDW 14.5 D Plt Count 129 L D MPV 9.3 D Sodium Potassium Chloride Carbon Dioxide Anion Gap BUN Creatinine Est GFR (CKD-EPI)AfAm Est GFR (CKD-EPI)NonAf Random Glucose Calcium Total Bilirubin AST ALT Alkaline Phosphatase Total Protein Albumin Urine Color Yellow Urine Appearance Clear Urine pH 6.5 Ur Specific [place] 1.025 Urine Protein Negative Urine Glucose (UA) Negative Urine Ketones Negative Urine Blood Negative Urine Nitrite Negative Urine Bilirubin Negative Urine Urobilinogen 0.2 Ur Leukocyte Esterase Negative Syphilis Serology COVID-19 (JOSÉ MIGUEL) Hep C Ab Diagnostic 0.1 04/09/20 07:30 WBC RBC Hgb Hct MCV MCH MCHC RDW Plt Count MPV Sodium Potassium 3.9 Chloride Carbon Dioxide Anion Gap BUN Creatinine Est GFR (CKD-EPI)AfAm Est GFR (CKD-EPI)NonAf Random Glucose Calcium Total Bilirubin AST ALT Alkaline Phosphatase Total Protein Albumin Urine Color Urine Appearance Urine pH Ur Specific [place] Urine Protein Urine Glucose (UA) Urine Ketones Urine Blood Urine Nitrite Urine Bilirubin Urine Urobilinogen Ur Leukocyte Esterase Syphilis Serology COVID-19 (JOSÉ MIGUEL) Hep C Ab Diagnostic Labs reviewed: transaminitis noted Assessment: 04/09/20 14:37 Withdrawal sxs Noted with HTN and Transaminitis Plan: Continue detox Encouraged PO water hydration Scheduled for discharge tomorrow at 7am (patient requests to leave at 7am) HTN: monitor b/p, continue norvasc Transaminitis: could be r/t chronic alcoholism, would repeat LFTs in AM but patient requested to leave at 7am. Patient instructed to follow up with his PCP within 1 week for further follow up and management of all medical problems.
[2020-04-09] MEDS: traZODone HCL 50 MG TABLET (FP) PO SCH (21:06)
[2020-04-09] MEDS: THIAMINE HCL 100 MG TABLET (FP) PO SCH (21:06)
[2020-04-09] MEDS: MELATONIN 5 MG TABLETS PO SCH (21:08)
[2020-04-10] MEDS ORDERED: diazePAM 5 MG TABLET PO ONE (06:00)
[2020-04-10 06:01] VITALS: BP 115/79; PULSE 78; TEMP 97.1
--- NOTE | 2020-04-10 06:53 | DS ---
[facility] Detox Discharge Summary Admission Date: 04/07/20 Discharge Date: 04/10/20 - History Present History: Alcohol Dependence, Cocaine Dependence Pertinent Past History: NICOTINE DEPENDENCE ASTHMA CHRONIC BACK PAIN - Physical Exam Results Vital Signs: Vital Signs Temperature 97.1 F L 04/10/20 05:59 Pulse Rate 78 04/10/20 05:59 Respiratory Rate 18 04/10/20 05:59 Blood Pressure 115/79 04/10/20 05:59 O2 Sat by Pulse Oximetry (%) 97 04/10/20 05:59 Pertinent Admission Physical Exam Findings: withdrawal sx's Laboratory Tests 04/07/20 04/07/20 04/07/20 14:30 14:30 14:30 WBC RBC Hgb Hct MCV MCH MCHC RDW Plt Count MPV Sodium 141 Potassium 3.1 L Chloride 104 Carbon Dioxide 25 Anion Gap 12 BUN 6.3 L Creatinine 0.8 Est GFR (CKD-EPI)AfAm 128.60 Est GFR (CKD-EPI)NonAf 110.96 Random Glucose 91 Calcium 9.2 Total Bilirubin 1.1 H AST 230 H ALT 239 H Alkaline Phosphatase 114 Total Protein 7.4 Albumin 4.1 Urine Color Urine Appearance Urine pH Ur Specific [place] Urine Protein Urine Glucose (UA) Urine Ketones Urine Blood Urine Nitrite Urine Bilirubin Urine Urobilinogen Ur Leukocyte Esterase Syphilis Serology Non-reactive COVID-19 (JOSÉ MIGUEL) Not detected Hep C Ab Diagnostic 04/07/20 04/07/20 04/08/20 14:30 14:30 10:10 WBC 4.3 RBC 4.71 Hgb 14.2 Hct 43.3 D MCV 91.8 MCH 30.1 MCHC 32.7 RDW 14.5 D Plt Count 129 L D MPV 9.3 D Sodium Potassium Chloride Carbon Dioxide Anion Gap BUN Creatinine Est GFR (CKD-EPI)AfAm Est GFR (CKD-EPI)NonAf Random Glucose Calcium Total Bilirubin AST ALT Alkaline Phosphatase Total Protein Albumin Urine Color Yellow Urine Appearance Clear Urine pH 6.5 Ur Specific [place] 1.025 Urine Protein Negative Urine Glucose (UA) Negative Urine Ketones Negative Urine Blood Negative Urine Nitrite Negative Urine Bilirubin Negative Urine Urobilinogen 0.2 Ur Leukocyte Esterase Negative Syphilis Serology COVID-19 (JOSÉ MIGUEL) Hep C Ab Diagnostic 0.1 04/09/20 07:30 WBC RBC Hgb Hct MCV MCH MCHC RDW Plt Count MPV Sodium Potassium 3.9 Chloride Carbon Dioxide Anion Gap BUN Creatinine Est GFR (CKD-EPI)AfAm Est GFR (CKD-EPI)NonAf Random Glucose Calcium Total Bilirubin AST ALT Alkaline Phosphatase Total Protein Albumin Urine Color Urine Appearance Urine pH Ur Specific [place] Urine Protein Urine Glucose (UA) Urine Ketones Urine Blood Urine Nitrite Urine Bilirubin Urine Urobilinogen Ur Leukocyte Esterase Syphilis Serology COVID-19 (JOSÉ MIGUEL) Hep C Ab Diagnostic - Treatment Hospital Course: Detox Protocol Followed, Detoxed Safely, Responded well, Discharged Condition Good (7 AM DC PER CLIENTS REQUEST. HE IS A/O X3 NAD, VSS, AMBULATING SELF W/O DIFFICULTY. DENIES SOB, C.P., WITHDRAWAL SX'S.), Rehab Referral Accepted Patient has Accepted a Rehab Referral to: RETURNING TO HIS [facility] - Medication Discharge Medications: Ambulatory Orders Albuterol Sulfate Inhaler - [Ventolin HFA Inhaler -] 2 puff IH Q4H PRN 30 Days #1 inhaler 10/24/18 Amlodipine Besylate [Norvasc -] 10 mg PO DAILY 07/31/19 Fluoxetine HCl [Prozac] 40 mg PO DAILY #14 cap 04/05/20 - Diagnosis (1) Asthma Current Visit: Yes Status: Chronic Qualifiers: Asthma severity: mild Asthma complication type: unspecified (2) Bipolar disorder Current Visit: Yes Status: Chronic (3) Low back pain Current Visit: Yes Status: Chronic Qualifiers: Chronicity: chronic Back pain laterality: unspecified (4) Nicotine abuse Current Visit: Yes Status: Chronic (5) Cocaine dependence Current Visit: Yes Status: Chronic Qualifiers: Substance use status: uncomplicated Qualified Code(s): F14.20 - Cocaine dependence, uncomplicated (6) Alcohol dependence with withdrawal, uncomplicated Current Visit: Yes Status: Resolved - AMA Did Patient Leave Against Medical Advice: No
== END 2020-04-10 06:45 | disposition home or self-care (01) | DRG 774 ==
LOC: YASAS 10:32 → Y6N 14:21
PROVIDERS: ADMIT Allergy & Immunology; ATTEND Allergy & Immunology
PROC: HZ2ZZZZ Detoxification Services for Substance Abuse Treatment (ICD-10-PCS; principal; 2020-04-07)
DX: F10.230 Alcohol dependence with withdrawal, uncomplicated (principal); F14.20 Cocaine dependence, uncomplicated; F17.210 Nicotine dependence, cigarettes, uncomplicated; F31.9 Bipolar disorder, unspecified; F19.24 Other psychoactive substance dependence with psychoactive substance-induced mood disorder; F19.282 Other psychoactive substance dependence with psychoactive substance-induced sleep disorder; I10 Essential (primary) hypertension; M54.5 Low back pain; G89.29 Other chronic pain; R74.0 Nonspecific elevation of levels of transaminase and lactic acid dehydrogenase [LDH]; E87.6 Hypokalemia; J45.909 Unspecified asthma, uncomplicated; Z91.011 Allergy to milk products; Z91.013 Allergy to seafood; Z86.69 Personal history of other diseases of the nervous system and sense organs
CPT/HCPCS: 36415; 80053; 81003; 84132; 85027; 86780; 86803; Q0162; U0003

== ENCOUNTER 2020-04-26 14:10 | Inpatient (IN) | payer OTHER ==
--- NOTE | 2020-04-26 14:34 | BHS.RME ---
Substance Use & Tx History - Substance Use History Alcohol Substance amount: one half gallon Vodka Frequency of use: Daily Substance route: Oral Date of Last Use: 04/26/20 (First use age 25y. Seizure 3 y ago. No blackout. 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) Cocaine- Powder Substance amount: $20 Frequency of use: Once a month Substance route: Inhalation (ex: sniffing or snorting) Date of Last Use: 04/24/20 (First use age 36 y) OxyContin Substance amount: Has rx for Percocet Frequency of use: Daily Substance route: Oral Date of Last Use: 04/23/20 - Last Treatment Date of last treatment: April 07, 2020 to April 10, 2020 Treatment type: Substance Use Disorder (ANGÉLICA) Where was last treatment: Detox Physical/Psych/Mental Status - Behavior General Behavior: Decreased activity Eye Contact: Normal - Cooperativeness Cooperativeness: Cooperative - Thinking Thought Processes: Tight Thought content: Future oriented - Physical Health Problems Is patient presently having any pain?: Yes (chronic low back pain) Does patient presently have any injuries (include location): No Does patient currently have a fever: No CIWA Nausea/Vomitin Muscle Tremors: 3 Anxiety: 3 Agitation: 1-Slight > Activity Paroxysmal Sweats: 3 Orientation: 2-Disoriented Date<2 days Tacttile Disturbances: 0-None Auditory Disturbances: 1-Very Mild Visual Disturbances: 1-Very Mild Sensitivity Headache: 1-Very Mild CIWA-Ar Total Score: 18
[2020-04-26 15:28] VITALS: BMI 36.3
[2020-04-26] MEDS ORDERED: ONDANSETRON *ODT* 4 MG TABLET ONE (15:36)
[2020-04-26] MEDS ORDERED: ONDANSETRON *ODT* 4 MG TABLET SL ONE ×2 (15:40→17:24)
--- NOTE | 2020-04-26 15:52 | HP ---
<Vernell Reynoso - Last Filed: 04/26/20 16:21> CIWA Score Nausea/Vomitin Muscle Tremors: 3 Anxiety: 3 Agitation: 1-Slight > Activity Paroxysmal Sweats: 3 Orientation: 2-Disoriented Date<2 days Tacttile Disturbances: 0-None Auditory Disturbances: 1-Very Mild Visual Disturbances: 1-Very Mild Sensitivity Headache: 1-Very Mild CIWA-Ar Total Score: 18 - Admission Criteria OASAS Guidelines: Admission for Medically Managed Detox: Requires at least one of the followin. CIWA greater than 12 2. Seizures within the past 24 hours 3. Delirium tremens within the past 24 hours 4. Hallucinations within the past 24 hours 5. Acute intervention needed for co occurring medical disorder 6. Acute intervention needed for co occurring psychiatric disorder 7. Severe withdrawal that cannot be handled at a lower level of care (continued vomiting, continued diarrhea, abnormal vital signs) requiring intravenous medication and/or fluids 8. Admitting History and Physical - Admission Chief Complaint: Mr. Ricky Kumar presents to [facility] today and is requesting for detox for alcohol. History of Present Illness: Mr. Ricky Kumar presents to [facility] today and is requesting for detox for alcohol. PMH: Asthma, chronic neck pain PSH: Lumbar fusion 2016 PSYCH: Anxiety and depression SOCIAL/DOMICILED: [place] in [facility] LEGAL: None Substance Use & Tx History - Substance Use History Alcohol Substance amount: one half gallon Vodka Frequency of use: Daily Substance route: Oral Date of Last Use: 04/26/20 (First use age 25y. Seizure 3 y ago. No blackout. 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) Cocaine- Powder Substance amount: $20 Frequency of use: Once a month Substance route: Inhalation (ex: sniffing or snorting) Date of Last Use: 04/24/20 (First use age 36 y) OxyContin Substance amount: Has rx for Percocet 10/ Frequency of use: Daily Substance route: Oral Date of Last Use: 04/23/20 History Source: Patient Limitations to Obtaining History: No Limitations - Past Medical History PARAFFINER: Yes: Seizure Cardiovascular: Yes: HTN Pulmonary: Yes: Asthma Infectious Disease: Yes: HIV Psych: Yes: Anxiety, Depression, Other (insomnia) Musculoskeletal: Yes: Chronic low back pain (lumbar fusion since 2016) - Smoking History Smoking history: Current some day smoker Have you smoked in the past 12 months: No Aproximately how many cigarettes per day: 5 - Alcohol/Substance Use Hx Alcohol Use: Yes Number of Drinks Daily: 1 (takes a gallon every two days) History of Substance Use: reports: Cocaine (sniffs $20 worth 2x a month) Date of Last Use: 04/24/20 (sniffs) - Social History Usual Living Arrangement: Yes: Other (lives with mother and daughter) ADL: Support Services Occupation: unemployed History of Recent Travel: No Admission [facility] - [facility] Chief Complaint: Mr. Ricky Kumar presents to [facility] today and is requesting for detox for alcohol. Allergies/Adverse Reactions: Allergies Allergy/AdvReac Type Severity Reaction Status Date / Time No Known Drug Allergies Allergy Verified 04/07/20 14:08 lactose AdvReac Verified 04/07/20 14:08 seafood Allergy Mild Rash Uncoded 04/07/20 14:08 Exam Limitations: No Limitations - Ebola screening Have you traveled outside of the country in the last 21 days: No Have you been sick,other than usual withdrawal symptoms: No Do you have a fever: No - Review of Systems Constitutional: Chills, Diaphoresis, Loss of Appetite (mild) EENT: reports: No Symptoms Reported Respiratory: reports: No Symptoms reported GI: reports: Nausea, Vomiting (vomited in waiting room, zofran prescribed) : reports: No Symptoms Reported Musculoskeletal: reports: Back Pain (lumbar fusion since 2015, on percocet) Integumentary: reports: No Symptoms Reported Neuro: reports: Headache (says headache is mild) Endocrine: reports: No Symptoms Reported Hematology: reports: No Symptoms Reported Psychiatric: reports: Anxious Patient History - Patient Medical History Hx Anemia: No Hx Asthma: Yes Hx Chronic Obstructive Pulmonary Disease (COPD): No Hx Cancer: No Hx Cardiac Disorders: No Hx Congestive Heart Failure: No Hx Hypertension: Yes Hx Hypercholesterolemia: No Hx Pacemaker: No HX Cerebrovascular Accident: No Hx Seizures: Yes (" a couple years ago" pt reports related to drinking) Hx Dementia: No Hx Diabetes: No Hx Gastrointestinal Disorders: No Hx Liver Disease: No Hx Genitourinary Disorders: No Hx Sexually Transmitted Disorders: No Hx Renal Disease (ESRD): No Hx Thyroid Disease: No Hx Human Immunodeficiency Virus (HIV): No (last 12/2019 nrgaive) Hx Hepatitis C: No Hx Depression: Yes Hx Suicide Attempt: No Hx Bipolar Disorder: Yes Hx Schizophrenia: No - Patient Surgical History Past Surgical History: Yes Hx Neurologic Surgery: Yes (due to fusion of L2 L3 in 2016) Hx Cataract Extraction: No Hx Cardiac Surgery: No Hx Lung Surgery: No Hx Breast Surgery: No Hx Breast Biopsy: No Hx Abdominal Surgery: No Hx Appendectomy: No Hx Cholecystectomy: No Hx Genitourinary Surgery: No Hx Section: No Hx Orthopedic Surgery: Yes (left gangliaon cyst removed 1994 wrist) Other Surgical History: ganglion cyst, left wrist Anesthesia Reaction: No - PPD History Previous Implant?: Yes Documented Results: Negative w/proof Implanted On Prior [facility] Admission?: Yes Date: 04/09/20 Results: Negative - Smoking Cessation Smoking history: Current some day smoker Have you smoked in the past 12 months: Yes Aproximately how many cigarettes per day: 5 Cigars Per Day: 1 Hx Chewing Tobacco Use: No Initiated information on smoking cessation: Yes 'Breaking Loose' booklet given: 04/26/20 - Substances abused Alcohol Substance route: Oral Frequency: Daily Amount used: A gallon Age of first use: 25 Date of last use: 04/25/20 Cocaine Substance route: Inhalation Frequency: 1-3 times last 30 days Amount used: "A $20 bag" Age of first use: 36 Date of last use: 04/23/20 Benzodiazepine (Klonopin) Frequency: 1-2 times per week Admission Physical Exam [facility] - Vital Signs Vital Signs: Vital Signs - 24 hr 04/26/20 15:19 Temperature 98.1 F Pulse Rate 113 H Respiratory 16 Rate Blood Pressure 123/88 - Physical General Appearance: Yes: Within Normal Limits, No Apparent Distress, Nourished, Appropriately Dressed HEENTM: Yes: Within Normal Limits, EOMI, Hearing grossly Normal, Normal ENT Inspection, Normocephalic, Normal Voice, JENNY Respiratory: Yes: Within Normal Limits, Chest Non-Tender, Lungs Clear, Normal Breath Sounds, No Respiratory Distress, No Accessory Muscle Use Neck: Yes: Within Normal Limits, No masses,lesions,Nodules, Trachea in good position Breast: Yes: Breast Exam Deferred Cardiology: Yes: Within Normal Limits, Regular Rhythm, Regular Rate, Gallop/S4 Abdominal: Yes: Within Normal Limits, Normal Bowel Sounds, Tenderness (mild tenderness in rt. hypogastrium) Genitourinary: Yes: Within Normal Limits Musculoskeletal: Yes: Back pain (lumbar fusion since 2016, on percocet) Extremities: Yes: Within Normal Limits, Normal Capillary Refill, Normal Inspection, Normal Range of Motion, Non-Tender Neurological: Yes: Fully Oriented, Alert, Normal Mood/Affect Integumentary: Yes: Within Normal Limits, Normal Color - Diagnostic (1) Alcohol dependence with withdrawal with complication Current Visit: Yes Status: Acute (2) Cocaine use disorder Current Visit: Yes Status: Chronic (3) Nicotine dependence Current Visit: Yes Status: Chronic Qualifiers: Nicotine product type: cigarettes Cleared for Admission [facility] - Detox or Rehab [facility] Level of Care: Medically Managed Detox Regimen/Protocol: Librium (patient's preference) Screened but not Admitted - Documentation of Visit Screened but not Admitted: No Breathalyzer - Breathalyzer Breathalyzer: 0.169 Urine Drug Screen - Test Device Lot number: [id number] Expiration date: 06/12/21 - Control Is test valid?: Yes - Results Drug screen NEGATIVE: No Urine drug screen results: MARIANNE-Cocaine, OXY-Oxycodone, BZO-Benzodiazepines Inpatient Rehab Admission - Rehab Decision to Admit Inpatient rehab admission?: No <Daylin Farmer - Last Filed: 04/26/20 19:18> CIWA Score - Admission Criteria OAS Guidelines: Admission for Medically Managed Detox: Requires at least one of the followin. CIWA greater than 12 2. Seizures within the past 24 hours 3. Delirium tremens within the past 24 hours 4. Hallucinations within the past 24 hours 5. Acute intervention needed for co occurring medical disorder 6. Acute intervention needed for co occurring psychiatric disorder 7. Severe withdrawal that cannot be handled at a lower level of care (continued vomiting, continued diarrhea, abnormal vital signs) requiring intravenous medication and/or fluids 8. Admission Physical Exam [facility] - Vital Signs Vital Signs: Vital Signs - 24 hr 04/26/20 15:19 Temperature 98.1 F Pulse Rate 113 H Respiratory 16 Rate Blood Pressure 123/88
[2020-04-26] MEDS ORDERED: ALBUTEROL SO4 HFA INHALER IH PRN (16:32)
[2020-04-26] MEDS ORDERED: MENTHOL/PHENOL 1 EACH UD MM PRN (17:24)
[2020-04-26] MEDS ORDERED: MAGNESIUM CITRATE 300 ML BOTTLE PO PRN (17:24)
[2020-04-26] MEDS ORDERED: MAGNESIUM HYDROX 2400MG/30ML ORAL SUSPENSION 30 ML CUP PO PRN (17:24)
[2020-04-26] MEDS ORDERED: IBUPROFEN 400 MG TABLET (FP) PO PRN (17:24)
[2020-04-26] MEDS ORDERED: MAG HYDROX/AL HYDROX/SIMETH 30 ML UNIT-DOSE CUP PO PRN (17:24)
[2020-04-26] MEDS ORDERED: NICOTINE POLACRILEX 2 MG GUM BUC PRN (17:24)
[2020-04-26] MEDS ORDERED: BISMUTH SUBSALICYLATE 524 MG/30 ML UD PO PRN (17:24)
[2020-04-26] MEDS: hydrOXYzine PAMOATE 25 MG CAPSULE (FP) PO SCH ×2 (18:01→21:24)
[2020-04-26] MEDS: diazePAM 5 MG TABLET PO PRN (18:01)
[2020-04-26] MEDS: PRENATAL VITAMINS W/ FOLIC ACID TABLET (FP) PO SCH (18:01)
[2020-04-26] MEDS ORDERED: METOPROLOL TARTRATE 25 MG TABLET (FP) PO ONE (19:13)
--- NOTE | 2020-04-26 19:14 | PN ---
[facility] Progress Note Note: Vital Signs - 24 hr 04/26/20 04/26/20 15:19 17:56 Temperature 98.1 F 97.5 F L Pulse Rate 113 H 95 H Respiratory 16 18 Rate Blood Pressure 123/88 137/94 P : Metoprolol 25 mg once .
[2020-04-26] MEDS: MELATONIN 5 MG TABLETS PO SCH (21:24)
[2020-04-26] MEDS: THIAMINE HCL 100 MG TABLET (FP) PO SCH (21:24)
[2020-04-26] MEDS: diazePAM 5 MG TABLET PO SCH (21:24)
[2020-04-27] MEDS: hydrOXYzine PAMOATE 25 MG CAPSULE (FP) PO SCH (05:35)
[2020-04-27] MEDS: diazePAM 5 MG TABLET PO SCH ×3 (05:36→21:28)
--- NOTE | 2020-04-27 09:02 | CONSULT ---
[facility] Psychiatric Consult - Data Date of interview: 04/27/20 Admission source: [facility] Identifying data: Patient is a 39 year old single male, father of two, domiciled, and currently employed. This is one of multiple admissions for patient. Patient admitted to for alcohol and cocaine dependence. Substance Abuse History: - Smoking History. Smoking history: Current some day smoker. Have you smoked in the past 12 months: No. Aproximately how many cigarettes per day: 5. - Alcohol/Substance Use. Hx Alcohol Use: Yes. Number of Drinks Daily: 1 (takes a gallon every two days). History of Substance Use: reports: Cocaine (sniffs $20 worth 2x a month). Date of Last Use: 04/24/20 (sniffs) Medical History: Significant for bronchial asthma, hypertension, low back pain, history of alcohol related seizure, neurosurgery for lumbar fusion L2L3 and removal of ganglion cyst left wrist Psychiatric History: Patient denies h/o psychiatric hospitalization and suicide attempt. Mr. Kumar reports history of outpatient psychatric care in [place], [place] by Dr. frye. He was prescribed prozac 60mg + Seroquel 200mg. Diagnosis of MDD. Mr. Kumar is now being seen by advertising copy writer at the [facility] and is prescribed prozac 40mg + Trazodone 50mg HS. Patient was admitted to current facility for detox treatment three weeks ago due to relapsing after his girlfriend had a miscarriage. Today, he reports relapsing again due to issues within the family. At present patient reports feeling sad and is experiencing difficulty sleeping. Physical/Sexual Abuse/Trauma History: denies. Mental Status Exam - Mental Status Exam Alert and Oriented to: Time, Place, Person Cognitive Function: Good Patient Appearance: Unkempt Mood: Withdrawn Affect: Mood Congruent Patient Behavior: Fatigued, Cooperative Speech Pattern: Clear Voice Loudness: Mildly Soft/Quiet Thought Process: Goal Oriented Thought Disorder: Not Present Hallucinations: Denies Suicidal Ideation: Denies Homicidal Ideation: Denies Insight/Judgement: Poor Sleep: Poorly Appetite: Fair Muscle strength/Tone: Normal Gait/Station: Normal Psychiatric Findings - Problem List ([place] 1, 2,3) (1) Alcohol dependence with withdrawal with complication Status: Acute (2) Cocaine use disorder Status: Chronic (3) Nicotine dependence Status: Chronic Qualifiers: Nicotine product type: cigarettes (4) Alcohol use disorder Status: Acute (5) Substance-induced sleep disorder Status: Acute (6) Substance induced mood disorder Status: Acute (7) MDD (major depressive disorder) Status: Chronic - Initial Treatment Plan Initial Treatment Plan: Psychoeducation provided. Detoxification in progress. Will order Prozac 40mg daily + Trazodone 50mg HS. Benefits and side effects discussed. Verbal consent given.
--- NOTE | 2020-04-27 10:00 | PN ---
S CIWA - CIWA Score Nausea/Vomitin Muscle Tremors: 4-Moderate,w/Arms Extend Anxiety: 4-Mod. Anxious/Guarded Agitation: 4-Moderately Restless Paroxysmal Sweats: 3 Orientation: 0-Oriented Tacttile Disturbances: 0-None Auditory Disturbances: 0-None Visual Disturbances: 0-None Headache: 0-None Present CIWA-Ar Total Score: 17 [facility] Progress Note (SOAP) Subjective: sweats shakes nausea interrupted sleep body aches agitation Objective: 04/27/20 10:04 Vital Signs Temperature 97.3 F L 04/27/20 08:56 Pulse Rate 100 H 04/27/20 08:56 Respiratory Rate 17 04/27/20 08:56 Blood Pressure 134/87 04/27/20 08:56 O2 Sat by Pulse Oximetry (%) 96 04/27/20 05:32 labs pending [id number] ambulating no acute distress Assessment: 04/27/20 10:05 withdrawals Plan: continue detox increase fluids andreina lau prn
[2020-04-27] MEDS: hydrOXYzine PAMOATE 25 MG CAPSULE (FP) PO PRN ×2 (10:08→17:12)
[2020-04-27] MEDS: diazePAM 5 MG TABLET PO PRN ×2 (10:08→17:11)
[2020-04-27] MEDS: FLUoxetine HCL 20 MG CAPSULE PO SCH (10:08)
[2020-04-27] MEDS: amLODIPine BESYLATE 10 MG TABLET (FP) PO SCH (10:09)
[2020-04-27] MEDS: PRENATAL VITAMINS W/ FOLIC ACID TABLET (FP) PO SCH (10:09)
[2020-04-27 11:07] LABS: HEMATOCRIT 45.6 % (35.4-49); MCH 29.5 pg (25.7-33.7); MCHC 32.8 g/dl (32.0-35.9); MEAN PLT VOLUME 9.1 fl (7.5-11.1); PLATELET COUNT 204 K/MM3 (134-434); RBC 5.06 M/mm3 (4.00-5.60); RDW 14.5 % (11.9-15.9); WHITE BLOOD COUNT 5.2 K/mm3 (4.0-10.0)
[2020-04-27 11:24] LABS: CREATININE 0.9 mg/dL (0.55-1.3); POTASSIUM 3.6 mmol/L (3.5-5.1); TOT PROT 6.9 g/dl (6.4-8.2)
[2020-04-27 11:29] LABS: ALBUMIN 3.6 g/dl (3.4-5.0); CALCIUM 9.1 mg/dL (8.5-10.1)
--- NOTE | 2020-04-27 12:00 | EKG ---
Test Reason : Blood Pressure : / mmHG Vent. Rate : 113 BPM Atrial Rate : 113 BPM P-R Int : 150 ms QRS Dur : 106 ms QT Int : 338 ms P-R-T Axes : 066 141 047 degrees QTc Int : 463 ms SINUS TACHYCARDIA INDETERMINATE AXIS INFERIOR INFARCT , AGE UNDETERMINED ABNORMAL ECG WHEN COMPARED WITH ECG OF 26-SEP-2019 19:45, QUESTIONABLE CHANGE IN QRS AXIS Confirmed by MARIAJOSE RANGEL MD ([id number]) on 04/27/2020 11:59:59 AM Referred By: Confirmed By:MARIAJOSE RANGEL MD
[2020-04-27] MEDS: METHOCARBAMOL 500 MG TABLET PO PRN (19:22)
[2020-04-27] MEDS: traZODone HCL 50 MG TABLET (FP) PO SCH (21:28)
[2020-04-27] MEDS: THIAMINE HCL 100 MG TABLET (FP) PO SCH (21:28)
[2020-04-27] MEDS: MELATONIN 5 MG TABLETS PO SCH (21:29)
[2020-04-27] MEDS ORDERED: COLLOIDAL OATMEAL 1 BAR EACH TP PRN (21:37)
[2020-04-28] MEDS: diazePAM 5 MG TABLET PO SCH ×2 (05:35→17:33)
[2020-04-28] MEDS: hydrOXYzine PAMOATE 25 MG CAPSULE (FP) PO PRN ×3 (05:37→20:46)
[2020-04-28] MEDS: amLODIPine BESYLATE 10 MG TABLET (FP) PO SCH (10:14)
[2020-04-28] MEDS: PRENATAL VITAMINS W/ FOLIC ACID TABLET (FP) PO SCH (10:14)
[2020-04-28] MEDS: FLUoxetine HCL 20 MG CAPSULE PO SCH (10:15)
[2020-04-28] MEDS: diazePAM 5 MG TABLET PO PRN ×3 (10:16→20:46)
[2020-04-28] MEDS: ONDANSETRON *ODT* 4 MG TABLET SL PRN ×2 (10:16→17:32)
--- NOTE | 2020-04-28 12:43 | PN ---
S CIWA - CIWA Score Nausea/Vomitin-Mild Nausea/No Vomiting Muscle Tremors: 1-None Visible, but [place] Anxiety: 1-Mildly Anxious Agitation: 1-Slight > Activity Paroxysmal Sweats: No Perspiration Orientation: 0-Oriented Tacttile Disturbances: 1-Very Mild Itch/Numbness Auditory Disturbances: 0-None Visual Disturbances: 0-None Headache: 1-Very Mild CIWA-Ar Total Score: 6 B[facility] Progress Note (SOAP) Subjective: alert,irritable,anxious,interrupted sleep,pain,aching pain Objective: 04/28/20 12:41 Vital Signs Temperature 97.3 F L 04/28/20 08:33 Pulse Rate 86 04/28/20 08:33 Respiratory Rate 18 04/28/20 08:33 Blood Pressure 134/92 04/28/20 08:33 O2 Sat by Pulse Oximetry (%) 97 04/28/20 05:33 04/28/20 12:42 Laboratory Last Values WBC 5.2 K/mm3 (4.0-10.0) 04/27/20 07:50 RBC 5.06 M/mm3 (4.00-5.60) 04/27/20 07:50 Hgb 15.0 GM/dL (11.7-16.9) 04/27/20 07:50 Hct 45.6 % (35.4-49) 04/27/20 07:50 MCV 90.0 fl (80-96) 04/27/20 07:50 MCH 29.5 pg (25.7-33.7) 04/27/20 07:50 MCHC 32.8 g/dl (32.0-35.9) 04/27/20 07:50 RDW 14.5 % (11.9-15.9) 04/27/20 07:50 Plt Count 204 K/MM3 (134-434) D 04/27/20 07:50 MPV 9.1 fl (7.5-11.1) 04/27/20 07:50 Sodium 142 mmol/L (136-145) 04/27/20 07:50 Potassium 3.6 mmol/L (3.5-5.1) 04/27/20 07:50 Chloride 103 mmol/L (98-107) 04/27/20 07:50 Carbon Dioxide 33 mmol/L (21-32) H 04/27/20 07:50 Anion Gap 6 MMOL/L (8-16) L 04/27/20 07:50 BUN 8.0 mg/dL (7-18) 04/27/20 07:50 Creatinine 0.9 mg/dL (0.55-1.3) 04/27/20 07:50 Est GFR (CKD-EPI)AfAm 122.52 04/27/20 07:50 Est GFR (CKD-EPI)NonAf 105.71 04/27/20 07:50 Random Glucose 96 mg/dL (74-106) 04/27/20 07:50 Calcium 9.1 mg/dL (8.5-10.1) 04/27/20 07:50 Total Bilirubin 1.0 mg/dL (0.2-1) 04/27/20 07:50 AST 119 U/L (15-37) H 04/27/20 07:50 ALT 127 U/L (13-61) H 04/27/20 07:50 Alkaline Phosphatase 123 U/L (45-117) H 04/27/20 07:50 Total Protein 6.9 g/dl (6.4-8.2) 04/27/20 07:50 Albumin 3.6 g/dl (3.4-5.0) 04/27/20 07:50 Syphilis Serology Non-reactive (NONREACTIVE) 04/27/20 07:50 Assessment: 04/28/20 12:43 withdrawal symptom Plan: continue detox valium regimen ,repeat hepatic function today,discharge in am,follow up with new focus
[2020-04-28] MEDS: METHOCARBAMOL 500 MG TABLET PO PRN ×2 (14:28→22:09)
[2020-04-28 18:05] LABS: BILIRUBIN,DIRECT 0.2 mg/dL (0.0-0.2); BILIRUBIN,TOTAL 0.6 mg/dL (0.2-1); TOT PROT 7.6 g/dl (6.4-8.2)
[2020-04-28] MEDS: THIAMINE HCL 100 MG TABLET (FP) PO SCH (22:09)
[2020-04-28] MEDS: traZODone HCL 50 MG TABLET (FP) PO SCH (22:09)
[2020-04-28] MEDS: MELATONIN 5 MG TABLETS PO SCH (22:10)
[2020-04-29] MEDS: hydrOXYzine PAMOATE 25 MG CAPSULE (FP) PO PRN ×2 (05:23→09:28)
[2020-04-29] MEDS ORDERED: diazePAM 5 MG TABLET PO ONE (06:00)
[2020-04-29 06:01] VITALS: TEMP 97.1
[2020-04-29 07:04] VITALS: BP 140/87; PULSE 79
[2020-04-29] MEDS: PRENATAL VITAMINS W/ FOLIC ACID TABLET (FP) PO SCH (09:27)
[2020-04-29] MEDS: amLODIPine BESYLATE 10 MG TABLET (FP) PO SCH (09:27)
[2020-04-29] MEDS: FLUoxetine HCL 20 MG CAPSULE PO SCH (09:27)
--- NOTE | 2020-04-29 13:40 | DS ---
[facility] Detox Discharge Summary Admission Date: 04/26/20 Discharge Date: 04/29/20 - History Present History: Alcohol Dependence, Opioid Dependence Additional Comments: Alert and oriented x 3, in no acute respiratory distress. Full ROM, ambulating in the unit without assistance. Detox protocol completed, pt stable for discharge today. Pertinent Past History: History of asthma, HIV, Seizure, HTN, Alcohol, Cocaine, Oxycontin and nicotine use disorder. - Physical Exam Results Vital Signs: Vital Signs Temperature 97.1 F L 04/29/20 05:19 Pulse Rate 79 04/29/20 06:58 Respiratory Rate 16 04/29/20 05:19 Blood Pressure 140/87 04/29/20 06:58 O2 Sat by Pulse Oximetry (%) 99 04/29/20 05:19 Vital Signs 04/29/20 06:58 Pulse Rate 79 Blood Pressure 140/87 Laboratory Last Values WBC 5.2 K/mm3 (4.0-10.0) 04/27/20 07:50 RBC 5.06 M/mm3 (4.00-5.60) 04/27/20 07:50 Hgb 15.0 GM/dL (11.7-16.9) 04/27/20 07:50 Hct 45.6 % (35.4-49) 04/27/20 07:50 MCV 90.0 fl (80-96) 04/27/20 07:50 MCH 29.5 pg (25.7-33.7) 04/27/20 07:50 MCHC 32.8 g/dl (32.0-35.9) 04/27/20 07:50 RDW 14.5 % (11.9-15.9) 04/27/20 07:50 Plt Count 204 K/MM3 (134-434) D 04/27/20 07:50 MPV 9.1 fl (7.5-11.1) 04/27/20 07:50 Sodium 142 mmol/L (136-145) 04/27/20 07:50 Potassium 3.6 mmol/L (3.5-5.1) 04/27/20 07:50 Chloride 103 mmol/L (98-107) 04/27/20 07:50 Carbon Dioxide 33 mmol/L (21-32) H 04/27/20 07:50 Anion Gap 6 MMOL/L (8-16) L 04/27/20 07:50 BUN 8.0 mg/dL (7-18) 04/27/20 07:50 Creatinine 0.9 mg/dL (0.55-1.3) 04/27/20 07:50 Est GFR (CKD-EPI)AfAm 122.52 04/27/20 07:50 Est GFR (CKD-EPI)NonAf 105.71 04/27/20 07:50 Random Glucose 96 mg/dL (74-106) 04/27/20 07:50 Calcium 9.1 mg/dL (8.5-10.1) 04/27/20 07:50 Total Bilirubin 0.6 mg/dL (0.2-1) 04/28/20 14:10 Direct Bilirubin 0.2 mg/dL (0.0-0.2) 04/28/20 14:10 AST 89 U/L (15-37) H 04/28/20 14:10 ALT 117 U/L (13-61) H 04/28/20 14:10 Alkaline Phosphatase 136 U/L (45-117) H 04/28/20 14:10 Total Protein 7.6 g/dl (6.4-8.2) 04/28/20 14:10 Albumin 4.0 g/dl (3.4-5.0) 04/28/20 14:10 Syphilis Serology Non-reactive (NONREACTIVE) 04/27/20 07:50 COVID-19 (JOSÉ MIGUEL) Not detected (Not Detected) 04/26/20 15:45 Labs noted. Pertinent Admission Physical Exam Findings: Withdrawal symptoms. - Treatment Hospital Course: Detox Protocol Followed, Detoxed Safely, Responded well, Discharged Condition Good - Medication Discharge Medications: Ambulatory Orders Albuterol Sulfate Inhaler - [Ventolin HFA Inhaler -] 2 puff IH Q4H PRN 30 Days #1 inhaler 10/24/18 Amlodipine Besylate [Norvasc -] 10 mg PO DAILY 07/31/19 Fluoxetine HCl [Prozac] 40 mg PO DAILY #30 cap 04/19/20 traZODone HCL [Trazodone HCl] 50 mg PO HS #30 tablet 04/19/20 - Diagnosis (1) Alcohol dependence with withdrawal, uncomplicated Status: Acute (2) Cocaine dependence Status: Chronic (3) Asthma Status: Chronic Qualifiers: Asthma severity: mild Asthma persistence: intermittent Asthma complication type: with status asthmaticus Qualified Code(s): J45.22 - Mild intermittent asthma with status asthmaticus (4) Chronic low back pain Status: Chronic Qualifiers: Back pain laterality: midline Sciatica presence: unspecified whether sciatica present Qualified Code(s): M54.5 - Low back pain; G89.29 - Other chronic pain (5) Hypertension Status: Chronic Qualifiers: Hypertension type: essential hypertension Qualified Code(s): I10 - Essential (primary) hypertension (6) Nicotine dependence Status: Chronic Qualifiers: Nicotine product type: cigarettes - AMA Did Patient Leave Against Medical Advice: No
== END 2020-04-29 09:38 | disposition home or self-care (01) | DRG 773 ==
LOC: YASAS 14:10 → Y6N 16:12
PROVIDERS: ADMIT Allergy & Immunology; ATTEND Allergy & Immunology
PROC: HZ2ZZZZ Detoxification Services for Substance Abuse Treatment (ICD-10-PCS; principal; 2020-04-26)
DX: F10.230 Alcohol dependence with withdrawal, uncomplicated (principal); F11.23 Opioid dependence with withdrawal; F14.10 Cocaine abuse, uncomplicated; F17.210 Nicotine dependence, cigarettes, uncomplicated; F19.24 Other psychoactive substance dependence with psychoactive substance-induced mood disorder; F19.282 Other psychoactive substance dependence with psychoactive substance-induced sleep disorder; F31.9 Bipolar disorder, unspecified; Z21 Asymptomatic human immunodeficiency virus [HIV] infection status; I10 Essential (primary) hypertension; J45.22 Mild intermittent asthma with status asthmaticus; E73.9 Lactose intolerance, unspecified; M54.5 Low back pain; G89.29 Other chronic pain; I25.2 Old myocardial infarction; R00.0 Tachycardia, unspecified; Z98.1 Arthrodesis status; Z91.013 Allergy to seafood
CPT/HCPCS: 36415; 80053; 80076; 85027; 86780; 93005; 93010; Q0162; U0003